=== PATIENT | female | born 1945 | race Caucasian/White ===

== ENCOUNTER 2016-11-16 15:51 | Emergency (ER) | payer MEDICARE, OTHER ==
[2016-11-16 16:09] VITALS: BP 115/56; PULSE 92; RESP 18; TEMP 99.1
--- NOTE | 2016-11-16 16:42 | ED ---
Upper Extremity HPI - General Chief Complaint: Extremity Injury, Upper Stated Complaint: Fall-arm pain Time Seen by Provider: 11/16/16 16:12 Source: patient, RN notes reviewed Mode of arrival: ambulatory Limitations: no limitations - History of Present Illness Initial Comments: Patient is a 71-year-old female presents to the emergency room for evaluation of right arm pain. Patient states about 2 days ago she tripped and fell landing on her dogs' metal cage. Patient states she has pain in her right elbow , upper arm and shoulder. Patient states the pain is worse since the incident happened. Patient states she took a Pryor about 2 hours ago with slight relief of symptoms. Patient states she has severe pain whenever she tries to extend her elbow or move her shoulder. - Related Data Allergies Allergy/AdvReac Type Severity Reaction Status Date / Time ibuprofen Allergy Swelling Verified 11/16/16 16:10 shellfish derived [Shellfish] Allergy Unknown Verified 11/16/16 16:10 Review of Systems ROS Statement: Those systems with pertinent positive or pertinent negative responses have been documented in the HPI. ROS Other: All systems not noted in ROS Statement are negative. Past Medical History Past Medical History: Coronary Artery Disease (CAD), Cancer, COPD, Diabetes Mellitus, Myocardial Infarction ([place]) Additional Past Medical History / Comment(s): Lung Ca History of Any Multi-Drug Resistant Organisms: None Reported Past Surgical History: Heart Catheterization With Stent Additional Past Surgical History / Comment(s): Stents x7; Left lung lobectomy r/ t cancer Past Psychological History: No Psychological Hx Reported Smoking Status: Current every day smoker Past Alcohol Use History: None Reported Past Drug Use History: None Reported General Exam - General Exam Comments Initial Comments: Sitting in exam room, no acute distress. Limitations: no limitations General appearance: alert, in no apparent distress Head exam: Present: atraumatic, normocephalic, normal inspection Eye exam: Present: normal appearance ENT exam: Present: normal exam Neck exam: Present: normal inspection Respiratory exam: Absent: respiratory distress Right Shoulder Exam: Present: swelling (Anterior/lateral shoulder joint). Absent: full ROM (Patient refuses to move shoulder secondary to pain) Upper Arm exam: Present: tenderness (proximal humerus), ecchymosis (medial upper arm). Absent: normal inspection Elbow exam: Present: tenderness. Absent: full ROM (Patient bend elbow but only extend elbow to about 100) Forearm Wrist exam: Present: normal inspection, full ROM. Absent: tenderness Hand Wrist exam: Present: normal inspection, full ROM. Absent: tenderness Neuro motor exam: Present: wrist extension intact, thumb opposition intact, thumb IP flexion intact, thumb adduction intact, fingers 2-5 abduction intact Vascular: Present: normal capillary refill (Capillary refill less than 2 seconds ), radial pulse (2+). Absent: vascular compromise Back exam: Present: normal inspection Neurological exam: Present: alert, oriented X3, CN II-XII intact, normal gait Psychiatric exam: Present: normal affect, normal mood Skin exam: Present: warm, dry, intact, normal color. Absent: rash Course Vital Signs 11/16/16 16:05 Temperature 99.1 F Pulse Rate 92 Respiratory 18 Rate Blood Pressure 115/56 O2 Sat by Pulse 92 L Oximetry Medical Decision Making - Medical Decision Making Patient is a 71-year-old female presents to the emergency room for evaluation of right shoulder, upper arm and elbow pain. Right elbow x-ray shows no signs of fractures or dislocations. Right shoulder and humerus x-ray significant for comminuted proximal humerus fracture. Patient will be placed in a sling and advised to follow-up with funding specialist. Patient states she already has Pryor at home for pain. Advised patient to continue taking Pryor. Patient states she understands everything that was discussed with her. Return parameters discussed. Discussed with Dr. Hernandez. - Radiology Data Radiology results: report reviewed, image reviewed Disposition Clinical Impression: Comminuted right humeral fracture, Fall Disposition: HOME SELF-CARE Condition: Good Instructions: Proximal Humerus Fracture (ED) Additional Instructions: Continue taking Pryor at home for pain. Ice on and off for 20 minutes at a time. Please follow-up with funding specialist in 24-48 hours for reevaluation. If any new symptom arises or symptoms worsen, return to ER as soon as possible. Referrals: Edy Knight MD [STAFF PHYSICIAN] - 1-2 days Time of Disposition: 17:07
--- NOTE | 2016-11-16 17:04 | XR ---
EXAMINATION TYPE: XR shoulder complete RT, XR humerus RT, XR elbow limited RT DATE OF EXAM: 11/16/2016 4:52 PM CLINICAL HISTORY: Right shoulder, arm, and humeral pain after fall injury. TECHNIQUE: Three views of the rightshoulder are obtained. 2 views right humerus and elbow are acquir ed COMPARISON: None. FINDINGS: Osseous structures are demineralized. There is acute comminuted minimally displaced fractu re through the humeral head with involvement of greater tuberosity likely present. No glenohumeral dante int dislocation is seen. No significant displacement or angulation is identified. There is moderate j oint space loss at acromioclavicular joint. The visualized ribs are intact and unremarkable. Images of right humerus show no additional fracture or dislocation in the shaft. Overlying soft tissu e is unremarkable. Images of right elbow show no acute fracture or dislocation. No abnormal fat pad signs are seen. Over lying soft tissue is unremarkable. IMPRESSION: There is acute comminuted minimally displaced fracture through right humeral head.
[2016-11-16] MEDS ORDERED: HYDROmorphone 1 MG/ML 1 ML SYRINGE IVP STA (17:17)
== END 2016-11-16 17:39 | disposition home or self-care (01) ==
LOC: EC 15:51
DX: S42.351A Displaced comminuted fracture of shaft of humerus, right arm, initial encounter for closed fracture (principal); W01.198A Fall on same level from slipping, tripping and stumbling with subsequent striking against other object, initial encounter; Z95.5 Presence of coronary angioplasty implant and graft; F17.200 Nicotine dependence, unspecified, uncomplicated; Z88.8 Allergy status to other drugs, medicaments and biological substances; Z91.013 Allergy to seafood
CPT/HCPCS: 73030; 73060; 73070; 99284; 96374; J1170

== ENCOUNTER 2017-08-11 21:50 | Observation (INO) | payer MEDICARE, OTHER ==
[2017-08-11 22:43] LABS: Basophils % (A) 0 %; CH 29.2; CHCM 32.9; Eosinophils # (A) 0.1 k/uL (0-0.7); Eosinophils % (A) 1 %; HCT 47.1 % (34.0-46.0); HDW 2.45; Luc # (Auto) 0.06; Luc % (Auto) 0; Lymphocytes # (A) 1.4 k/uL (1.0-4.8); Lymphocytes % (A) 10 %; MCH 28.5 pg (25.0-35.0); MCHC 31.9 g/dL (31.0-37.0); MCV 89.4 fL (80.0-100.0); Mean Platelet Volume 7.8; Monocytes # (A) 0.5 k/uL (0-1.0); Monocytes % (A) 3 %; Neutrophils # (A) 11.7 k/uL (1.3-7.7); Neutrophils % (A) 85 %; RBC 5.27 m/uL (3.80-5.40); RDW 15.3 % (11.5-15.5); WBC 13.7 k/uL (3.8-10.6); WBC (Perox) 13.19
[2017-08-11 22:53] LABS: INR 1.1 (<1.2); Partial Thromboplastin Time 22.9 sec (22.0-30.0); Prothrombin Time 11.2 sec (9.0-12.0)
[2017-08-11 22:54] LABS: Glucose,Whole Blood 290 mg/dL (75-99)
[2017-08-11 23:05] LABS: Anion Gap 10 mmol/L; Blood Urea Nitrogen 14 mg/dL (7-17); Calcium 8.8 mg/dL (8.4-10.2); Carbon Dioxide 25 mmol/L (22-30); Chloride 101 mmol/L (98-107); Glucose 336 mg/dL (74-99); Non-African American GFR(MDRD) >60 (>60 ml/min/1.73 sqM); Sodium 136 mmol/L (137-145)
--- NOTE | 2017-08-11 23:10 | CT ---
EXAMINATION TYPE: CT brain zelda hooper DATE OF EXAM: 08/11/2017 COMPARISON: 04/21/2012 HISTORY: Fall today with frontal injury CT DLP: 1755 mGycm Automated exposure control for dose reduction was used. TECHNIQUE: CT scan of the head and cervical spine are performed without contrast. FINDINGS: There is some cerebral cortical atrophy. There is no mass effect nor midline shift. There is no sign of intracranial hemorrhage. There is mild hypodensity in the periventricular white matter . Calvarium is intact. There is a small frontal scalp soft tissue swelling. There is fairly normal alignment of the vertebra. There is narrowing of C6-7 disc space with spurring of the endplates. Facet joints appear intact. The skull base appears intact. There is hypertrophic s purring also at C5-6 endplates. IMPRESSION: Spondylotic changes in the lower cervical spine. No fracture. No change. Cerebral atrophy and mild chronic small vessel ischemia. Small frontal scalp hematoma. No acute intra cranial abnormality.
[2017-08-11] MEDS ORDERED: SODIUM CHLORIDE 0.9% 1,000 ML IV STA (23:19)
[2017-08-11] MEDS ORDERED: SODIUM CHLORIDE 0.9% 500 ML IV STA (23:19)
--- NOTE | 2017-08-11 23:26 | ED ---
General Adult HPI - General Chief complaint: Fall Stated complaint: Fall/Syncope Time Seen by Provider: 08/11/17 23:16 Source: patient, EMS, RN notes reviewed, old records reviewed Mode of arrival: EMS Limitations: no limitations - History of Present Illness Initial comments: This is a 72-year-old female to the ER for evaluation. Patient has severe status post syncopal event. Patient has syncopal event fell and hit her head. Unknown loss of consciousness. Patient had no chest pain headache shortness of breath or abdominal pain prior. Patient complains of mild bleeding and pain to the anterior head. No blood thinners. Patient has medical history for CAD COPD and hypertension. Admits to decreased appetite as of late. - Related Data Home Medications Medication Instructions Recorded Confirmed Albuterol Inhaler [Ventolin Hfa 2 puff INHALATION RT-Q4H PRN 08/11/17 08/11/17 Inhaler] Albuterol Nebulized [Ventolin 2.5 mg INHALATION RT-QID PRN 08/11/17 08/11/17 Nebulized] Allopurinol [Zyloprim] 300 mg PO DAILY@1400 08/11/17 08/11/17 Aspirin 325 mg PO DAILY 08/11/17 08/11/17 Atorvastatin [Lipitor] 40 mg PO HS@2200 08/11/17 08/11/17 Beclomethasone Dipropionate [Qvar 2 puff INHALATION RT-BID 08/11/17 08/11/17 40 mcg] Budesonide/Formoterol Fumarate 1 puff INHALATION RT-BID 08/11/17 08/11/17 [Symbicort 160-4.5 Mcg Inhaler] Carbidopa-Levodopa 25-100 mg 1 tab PO TID 08/11/17 08/11/17 [Sinemet 25-100 mg] Docusate Sodium [Dok] 100 mg PO BID PRN 08/11/17 08/11/17 Furosemide [Lasix] 40 mg PO DAILY 08/11/17 08/11/17 Gabapentin [Neurontin] 300 mg PO BID@0900,1400 08/11/17 08/11/17 HYDROcodone/APAP 5-325MG [[place] 1 tab PO BID PRN 08/11/17 08/11/17 5-325] Insulin Aspart [NovoLOG Flexpen] 16 units SQ AC-TID 08/11/17 08/11/17 Insulin Detemir [Levemir] 70 unit SQ DAILY 08/11/17 08/11/17 Ipratropium Nebulized [Atrovent 0.5 mg INHALATION RT-QID PRN 08/11/17 08/11/17 Nebulized] Metoprolol Tartrate [Lopressor] 12.5 mg PO BID 08/11/17 08/11/17 Nitroglycerin Sl Tabs [Nitrostat] 0.4 mg SUBLINGUAL Q5M PRN 08/11/17 08/11/17 PARoxetine HCL [Paxil] 40 mg PO QAM@0900 08/11/17 08/11/17 Ranitidine HCl 150 mg PO BID@0900,2200 08/11/17 08/11/17 Previous Rx's Medication Instructions Recorded Lisinopril [Prinivil] 2.5 mg PO DAILY #0 08/12/17 Potassium Chloride ER [K-Dur 20] 20 meq PO DAILY #30 tab 08/12/17 Allergies Allergy/AdvReac Type Severity Reaction Status Date / Time diltiazem [From Cardizem] Allergy Itching Verified 08/11/17 22:13 ibuprofen Allergy Swelling Verified 08/11/17 22:13 shellfish derived [Shellfish] Allergy Unknown Verified 11/16/16 16:10 Review of Systems ROS Statement: Those systems with pertinent positive or pertinent negative responses have been documented in the HPI. ROS Other: All systems not noted in ROS Statement are negative. Past Medical History Past Medical History: Coronary Artery Disease (CAD), Cancer, COPD, Diabetes Mellitus, Myocardial Infarction ([place]) Additional Past Medical History / Comment(s): Lung Ca History of Any Multi-Drug Resistant Organisms: None Reported Past Surgical History: Heart Catheterization With Stent Additional Past Surgical History / Comment(s): Stents x7; Left lung lobectomy r/ t cancer Past Psychological History: No Psychological Hx Reported Smoking Status: Current every day smoker Past Alcohol Use History: None Reported Past Drug Use History: None Reported - Past Family History Father Family Medical History: Cancer Additional Family Medical History / Comment(s): 64 Mother Family Medical History: CVA/TIA Additional Family Medical History / Comment(s): 72 General Exam Limitations: no limitations General appearance: alert, in no apparent distress Head exam: Present: normocephalic, normal inspection. Absent: atraumatic ( laceration of forehead 2cm) Eye exam: Present: normal appearance, PERRL, EOMI. Absent: scleral icterus, conjunctival injection, periorbital swelling ENT exam: Present: normal exam, mucous membranes moist Neck exam: Present: normal inspection. Absent: tenderness, meningismus, lymphadenopathy Respiratory exam: Present: normal lung sounds bilaterally. Absent: respiratory distress, wheezes, rales, rhonchi, stridor Cardiovascular Exam: Present: regular rate, normal rhythm, normal heart sounds. Absent: systolic murmur, diastolic murmur, rubs, gallop, clicks GI/Abdominal exam: Present: soft, normal bowel sounds. Absent: distended, tenderness, guarding, rebound, rigid Extremities exam: Present: normal inspection, full ROM, normal capillary refill. Absent: tenderness, pedal edema, joint swelling, calf tenderness Back exam: Present: normal inspection Neurological exam: Present: alert, oriented X3, CN II-XII intact Psychiatric exam: Present: normal affect, normal mood Skin exam: Present: warm, dry, intact, normal color. Absent: rash Course Vital Signs 08/11/17 08/11/17 08/11/17 21:51 22:27 23:27 Temperature Pulse Rate 87 80 82 Respiratory 18 16 16 Rate Blood Pressure 128/61 125/62 130/66 O2 Sat by Pulse 99 97 96 Oximetry 08/12/17 08/12/17 02:07 02:27 Temperature 97.4 F L Pulse Rate 88 Respiratory 16 Rate Blood Pressure 155/87 O2 Sat by Pulse 97 Oximetry EKG Findings - EKG Comments: EKG Findings:: EKG shows sinus rhythm rate of 86, ME 136, QRS 114, QTc 524 Procedures - Laceration Laceration #1 Consent Obtained: verbal consent Time Out Performed: Yes Indication: laceration Site: face Size (cm): 5 Description: linear Depth: simple, single layer Anesthetic Used: lidocaine 1% Anesthesia Technique: local infiltration Pre-repair: wound explored, irrigated extensively Type of Sutures: nylon Size of Sutures: 4-0 Technique: simple, interrupted Patient Tolerated Procedure: well Medical Decision Making - Medical Decision Making 72 female to the ER for evaluation. Patient syncopal episode and fall. Patient did cystoscopy for laceration to head which is repaired. Patient will be admitted for observation regarding cause of fall - Lab Data Result diagrams: 08/11/17 22:11 08/11/17 22:11 Lab Results 08/11/17 08/11/17 08/11/17 Range/Units 22:11 22:11 22:11 WBC 13.7 H (3.8-10.6) k/uL RBC 5.27 (3.80-5.40) m/uL Hgb 15.0 (11.4-16.0) gm/dL Hct 47.1 H (34.0-46.0) % MCV 89.4 (80.0-100.0) fL MCH 28.5 (25.0-35.0) pg MCHC 31.9 (31.0-37.0) g/dL RDW 15.3 (11.5-15.5) % Plt Count 265 (150-450) k/uL Neutrophils % 85 % Lymphocytes % 10 % Monocytes % 3 % Eosinophils % 1 % Basophils % 0 % Neutrophils # 11.7 H (1.3-7.7) k/uL Lymphocytes # 1.4 (1.0-4.8) k/uL Monocytes # 0.5 (0-1.0) k/uL Eosinophils # 0.1 (0-0.7) k/uL Basophils # 0.0 (0-0.2) k/uL PT 11.2 (9.0-12.0) sec INR 1.1 (<1.2) APTT 22.9 (22.0-30.0) sec D-Dimer (<0.60) mg/L FEU Sodium 136 L (137-145) mmol/L Potassium 2.8 L* (3.5-5.1) mmol/L Chloride 101 (98-107) mmol/L Carbon Dioxide 25 (22-30) mmol/L Anion Gap 10 mmol/L BUN 14 (7-17) mg/dL Creatinine 0.70 (0.52-1.04) mg/dL Est GFR (MDRD) Af Amer >60 (>60 ml/min/1.73 sqM) Est GFR (MDRD) Non-Af >60 (>60 ml/min/1.73 sqM) Glucose 336 H (74-99) mg/dL POC Glucose (mg/dL) (75-99) mg/dL POC Glu [employer] Inspector ID Lactic Ac Sepsis Rflx Plasma Lactic Acid Carlos (0.7-2.0) mmol/L Calcium 8.8 (8.4-10.2) mg/dL Phosphorus (2.5-4.5) mg/dL Magnesium (1.6-2.3) mg/dL Total Creatine Kinase (30-135) U/L CK-MB (CK-2) (0.0-2.4) ng/mL CK-MB (CK-2) Rel Index Troponin I (0.000-0.034) ng/mL Urine Color Urine Appearance (Clear) Urine pH (5.0-8.0) Ur Specific [place] (1.001-1.035) Urine Protein (Negative) Urine Glucose (UA) (Negative) Urine Ketones (Negative) Urine Blood (Negative) Urine Nitrite (Negative) Urine Bilirubin (Negative) Urine Urobilinogen (<2.0) mg/dL Ur Leukocyte Esterase (Negative) 08/11/17 08/11/17 08/11/17 Range/Units 22:11 22:11 22:11 WBC (3.8-10.6) k/uL RBC (3.80-5.40) m/uL Hgb (11.4-16.0) gm/dL Hct (34.0-46.0) % MCV (80.0-100.0) fL MCH (25.0-35.0) pg MCHC (31.0-37.0) g/dL RDW (11.5-15.5) % Plt Count (150-450) k/uL Neutrophils % % Lymphocytes % % Monocytes % % Eosinophils % % Basophils % % Neutrophils # (1.3-7.7) k/uL Lymphocytes # (1.0-4.8) k/uL Monocytes # (0-1.0) k/uL Eosinophils # (0-0.7) k/uL Basophils # (0-0.2) k/uL PT (9.0-12.0) sec INR (<1.2) APTT (22.0-30.0) sec D-Dimer 3.41 H (<0.60) mg/L FEU Sodium (137-145) mmol/L Potassium (3.5-5.1) mmol/L Chloride (98-107) mmol/L Carbon Dioxide (22-30) mmol/L Anion Gap mmol/L BUN (7-17) mg/dL Creatinine (0.52-1.04) mg/dL Est GFR (MDRD) Af Amer (>60 ml/min/1.73 sqM) Est GFR (MDRD) Non-Af (>60 ml/min/1.73 sqM) Glucose (74-99) mg/dL POC Glucose (mg/dL) (75-99) mg/dL POC Glu [employer] Inspector ID Lactic Ac Sepsis Rflx Plasma Lactic Acid Carlos 3.2 H* (0.7-2.0) mmol/L Calcium (8.4-10.2) mg/dL Phosphorus (2.5-4.5) mg/dL Magnesium (1.6-2.3) mg/dL Total Creatine Kinase 38 (30-135) U/L CK-MB (CK-2) 0.7 (0.0-2.4) ng/mL CK-MB (CK-2) Rel Index 1.8 Troponin I <0.012 (0.000-0.034) ng/mL Urine Color Urine Appearance (Clear) Urine pH (5.0-8.0) Ur Specific [place] (1.001-1.035) Urine Protein (Negative) Urine Glucose (UA) (Negative) Urine Ketones (Negative) Urine Blood (Negative) Urine Nitrite (Negative) Urine Bilirubin (Negative) Urine Urobilinogen (<2.0) mg/dL Ur Leukocyte Esterase (Negative) 08/11/17 08/11/17 08/11/17 Range/Units 22:11 22:39 23:31 WBC (3.8-10.6) k/uL RBC (3.80-5.40) m/uL Hgb (11.4-16.0) gm/dL Hct (34.0-46.0) % MCV (80.0-100.0) fL MCH (25.0-35.0) pg MCHC (31.0-37.0) g/dL RDW (11.5-15.5) % Plt Count (150-450) k/uL Neutrophils % % Lymphocytes % % Monocytes % % Eosinophils % % Basophils % % Neutrophils # (1.3-7.7) k/uL Lymphocytes # (1.0-4.8) k/uL Monocytes # (0-1.0) k/uL Eosinophils # (0-0.7) k/uL Basophils # (0-0.2) k/uL PT (9.0-12.0) sec INR (<1.2) APTT (22.0-30.0) sec D-Dimer (<0.60) mg/L FEU Sodium (137-145) mmol/L Potassium (3.5-5.1) mmol/L Chloride (98-107) mmol/L Carbon Dioxide (22-30) mmol/L Anion Gap mmol/L BUN (7-17) mg/dL Creatinine (0.52-1.04) mg/dL Est GFR (MDRD) Af Amer (>60 ml/min/1.73 sqM) Est GFR (MDRD) Non-Af (>60 ml/min/1.73 sqM) Glucose (74-99) mg/dL POC Glucose (mg/dL) 290 H (75-99) mg/dL POC Glu [employer] ID Kory, Hannah Lactic Ac Sepsis Rflx Y Plasma Lactic Acid Carlos (0.7-2.0) mmol/L Calcium (8.4-10.2) mg/dL Phosphorus 3.1 (2.5-4.5) mg/dL Magnesium 1.7 (1.6-2.3) mg/dL Total Creatine Kinase (30-135) U/L CK-MB (CK-2) (0.0-2.4) ng/mL CK-MB (CK-2) Rel Index Troponin I (0.000-0.034) ng/mL Urine Color Urine Appearance (Clear) Urine pH (5.0-8.0) Ur Specific [place] (1.001-1.035) Urine Protein (Negative) Urine Glucose (UA) (Negative) Urine Ketones (Negative) Urine Blood (Negative) Urine Nitrite (Negative) Urine Bilirubin (Negative) Urine Urobilinogen (<2.0) mg/dL Ur Leukocyte Esterase (Negative) 08/12/17 Range/Units 00:13 WBC (3.8-10.6) k/uL RBC (3.80-5.40) m/uL Hgb (11.4-16.0) gm/dL Hct (34.0-46.0) % MCV (80.0-100.0) fL MCH (25.0-35.0) pg MCHC (31.0-37.0) g/dL RDW (11.5-15.5) % Plt Count (150-450) k/uL Neutrophils % % Lymphocytes % % Monocytes % % Eosinophils % % Basophils % % Neutrophils # (1.3-7.7) k/uL Lymphocytes # (1.0-4.8) k/uL Monocytes # (0-1.0) k/uL Eosinophils # (0-0.7) k/uL Basophils # (0-0.2) k/uL PT (9.0-12.0) sec INR (<1.2) APTT (22.0-30.0) sec D-Dimer (<0.60) mg/L FEU Sodium (137-145) mmol/L Potassium (3.5-5.1) mmol/L Chloride (98-107) mmol/L Carbon Dioxide (22-30) mmol/L Anion Gap mmol/L BUN (7-17) mg/dL Creatinine (0.52-1.04) mg/dL Est GFR (MDRD) Af Amer (>60 ml/min/1.73 sqM) Est GFR (MDRD) Non-Af (>60 ml/min/1.73 sqM) Glucose (74-99) mg/dL POC Glucose (mg/dL) (75-99) mg/dL POC Glu [employer] Inspector ID Lactic Ac Sepsis Rflx Plasma Lactic Acid Carlos (0.7-2.0) mmol/L Calcium (8.4-10.2) mg/dL Phosphorus (2.5-4.5) mg/dL Magnesium (1.6-2.3) mg/dL Total Creatine Kinase (30-135) U/L CK-MB (CK-2) (0.0-2.4) ng/mL CK-MB (CK-2) Rel Index Troponin I (0.000-0.034) ng/mL Urine Color Yellow Urine Appearance Clear (Clear) Urine pH 6.0 (5.0-8.0) Ur Specific [place] 1.006 (1.001-1.035) Urine Protein Negative (Negative) Urine Glucose (UA) 3+ H (Negative) Urine Ketones Negative (Negative) Urine Blood Negative (Negative) Urine Nitrite Negative (Negative) Urine Bilirubin Negative (Negative) Urine Urobilinogen 2.0 (<2.0) mg/dL Ur Leukocyte Esterase Negative (Negative) - Radiology Data Radiology results: report reviewed (Chest x-ray CT chest CT brain and C-spine negative for traumatic injury cause of syncope), image reviewed Disposition Clinical Impression: Fall, Syncope, Laceration of head, Head injury, Hypokalemia, Dehydration Disposition: ADMITTED IP TO THIS HOSP Condition: Fair
[2017-08-11 23:30] LABS: Potassium 2.8 mmol/L (3.5-5.1)
[2017-08-11 23:33] LABS: Magnesium 1.7 mg/dL (1.6-2.3); Phosphorus 3.1 mg/dL (2.5-4.5)
[2017-08-11 23:43] LABS: Creatine Kinase 38 U/L (30-135)
[2017-08-11 23:54] LABS: Creatine Kinase MB 0.7 ng/mL (0.0-2.4); Troponin I <0.012 ng/mL (0.000-0.034)
[2017-08-12] MEDS ORDERED: POTASSIUM BICARB-CITRIC ACID 25 MEQ TABLET.EFF PO STA (00:04)
--- NOTE | 2017-08-12 00:07 | XR ---
EXAMINATION TYPE: XR chest 2V DATE OF EXAM: 08/11/2017 COMPARISON: 11/08/2013 HISTORY: Weakness TECHNIQUE: Frontal and lateral views of the chest are obtained. FINDINGS: There are clips at the left pulmonary hilum. There is abnormal increased density around th e left pulmonary hilum and descending thoracic aorta. This appears increased compared to old exam. Th oracic aorta is atheromatous. The pulmonary markings. There is no definite pleural effusion. IMPRESSION: Abnormal masslike density along the descending thoracic aorta could relate to large aneu rysm that is increased compared to old exam. No heart failure. Pulmonary fibrotic changes. Follow-up is recommended. Tumor cannot be excluded. Previous surgery noted.
[2017-08-12] MEDS ORDERED: RX INFO: IV CONTRAST WAS GIVEN 1 EACH MISC MISCELLANE PRN (00:29)
[2017-08-12] MEDS: POTASSIUM CHLORIDE 20 MEQ, LIDOCAINE 2% INJ 20 MG in SODIUM CHLORIDE 0.9% 100 ML IVPB SCH ×3 (00:37→08:50)
[2017-08-12] MEDS ORDERED: SODIUM CHLORIDE 0.9% 1,000 ML IV ONE (00:46)
[2017-08-12] MEDS ORDERED: MORPHINE SULFATE 10 MG/ML SYRINGE IVP STA (00:54)
[2017-08-12 01:00] LABS: Appearance,Urine Clear (Clear); Bilirubin,Urine Negative (Negative); Glucose,Urine (UA) 3+ (Negative); Ketones,Urine Negative (Negative); Leukocyte Esterase,Urine Negative (Negative); Nitrite,Urine Negative (Negative); Protein,Urine Negative (Negative); Specific Gravity,Urine 1.006 (1.001-1.035); UA Billing (MACRO vs. MICRO) CHEM
--- NOTE | 2017-08-12 01:34 | CT ---
EXAMINATION TYPE: CT angio chest DATE OF EXAM: 08/12/2017 1:23 AM COMPARISON: 12/03/2013 HISTORY: Prior on synapse, weakness, fall, Surgical history: left lung, cholecystectomy, hysterectomy and appendectomy. Positive history of asthma, COPD, heart disease, diabetes and TIA, elevated d-dime r, R/O PE CT DLP: 279.80 mGycm Automated exposure control for dose reduction was used. CONTRAST: CTA scan of the thorax is performed with IV Contrast, patient injected with 85ml injected 15 ml waste d mL of Omnipaque 350, pulmonary embolism protocol. There are 3-D post processed images.. FINDINGS: The heart is enlarged. There is aneurysm of the descending thoracic aorta that measures up to 4.7 cm. There is atherosclerotic vascular calcification. I see no filling defects in the pulmonary arteries. There is no pericardial effusion. There is no ple ural effusion. There is no mediastinal adenopathy. There are no hilar masses. There is a 2 cm x 1 cm irregular nodule in the anterior segment of the right lower lobe. This has no calcification. There is spurring in the thoracic spine. IMPRESSION: NO EVIDENCE OF PULMONARY EMBOLISM. 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 THERE IS A NEW NODULAR DENSITY IN THE RIGHT LOWER LOBE THAT RAISES THE POSSIBILITY OF A TUMOR. FOLLOW -UP IS RECOMMENDED.
[2017-08-12 03:54] VITALS: BMI 25.7
[2017-08-12] MEDS ORDERED: ALBUTEROL NEBULIZED 2.5 MG/3 ML INHALATION PRN (04:34)
[2017-08-12] MEDS ORDERED: ACETAMINOPHEN TAB 325 MG TAB PO PRN (04:35)
[2017-08-12] MEDS ORDERED: traMADol 50 MG TAB PO PRN (04:36)
[2017-08-12 07:20] LABS: Glucose,Whole Blood 245 mg/dL (75-99)
[2017-08-12] MEDS: INSULIN LISPRO (humaLOG) 300 UNIT/3 ML VIAL SQ SCH ×4 (07:38→14:17)
[2017-08-12 08:29] VITALS: RESP 16; TEMP 98.1
[2017-08-12] MEDS ORDERED: ENOXAPARIN 40 MG/0.4 ML SYRINGE SQ SCH (09:00)
[2017-08-12 11:48] LABS: Glucose,Whole Blood 91 mg/dL (75-99)
[2017-08-12 12:07] VITALS: BP 131/72; PULSE 84
--- NOTE | 2017-08-12 14:34 | P.DS ---
Providers Date of admission: 08/12/17 00:46 Attending physician: Dev Dior Primary care physician: Gus Maxim [place] [facility] Course: As mentioned in HPI Patient Condition at Discharge: Fair Plan - Discharge Summary New Discharge Prescriptions: New Potassium Chloride ER [K-Dur 20] 20 meq PO DAILY #30 tab Continue Albuterol Inhaler [Ventolin Hfa Inhaler] 2 puff INHALATION RT-Q4H PRN PRN Reason: Shortness Of Breath Ranitidine HCl 150 mg PO BID@0900,2200 PARoxetine HCL [Paxil] 40 mg PO QAM@0900 Budesonide/Formoterol Fumarate [Symbicort 160-4.5 Mcg Inhaler] 1 puff INHALATION RT-BID Beclomethasone Dipropionate [Qvar 40 mcg] 2 puff INHALATION RT-BID Insulin Aspart [NovoLOG Flexpen] 16 units SQ AC-TID Nitroglycerin Sl Tabs [Nitrostat] 0.4 mg SUBLINGUAL Q5M PRN PRN Reason: Chest Pain Metoprolol Tartrate [Lopressor] 12.5 mg PO BID Insulin Detemir [Levemir] 70 unit SQ DAILY Ipratropium Nebulized [Atrovent Nebulized] 0.5 mg INHALATION RT-QID PRN PRN Reason: Shortness Of Breath HYDROcodone/APAP 5-325MG [[place]once 5-325] 1 tab PO BID PRN PRN Reason: Pain Gabapentin [Neurontin] 300 mg PO BID@0900,1400 Furosemide [Lasix] 40 mg PO DAILY Docusate Sodium [Dok] 100 mg PO BID PRN PRN Reason: Constipation Carbidopa-Levodopa 25-100 mg [Sinemet 25-100 mg] 1 tab PO TID Atorvastatin [Lipitor] 40 mg PO HS@2200 Aspirin 325 mg PO DAILY Allopurinol [Zyloprim] 300 mg PO DAILY@1400 Albuterol Nebulized [Ventolin Nebulized] 2.5 mg INHALATION RT-QID PRN PRN Reason: Shortness Of Breath Changed Lisinopril [Prinivil] 2.5 mg PO DAILY #0 Discontinued Hydrochlorothiazide 12.5 mg PO DAILY Captopril 12.5 mg PO HS@2200 Discharge Medication List Albuterol Inhaler [Ventolin Hfa Inhaler] 2 puff INHALATION RT-Q4H PRN 08/11/17 [ History] Albuterol Nebulized [Ventolin Nebulized] 2.5 mg INHALATION RT-QID PRN 08/11/17 [ History] Allopurinol [Zyloprim] 300 mg PO DAILY@1400 08/11/17 [History] Aspirin 325 mg PO DAILY 08/11/17 [History] Atorvastatin [Lipitor] 40 mg PO HS@2200 08/11/17 [History] Beclomethasone Dipropionate [Qvar 40 mcg] 2 puff INHALATION RT-BID 08/11/17 [ History] Budesonide/Formoterol Fumarate [Symbicort 160-4.5 Mcg Inhaler] 1 puff INHALATION RT-BID 08/11/17 [History] Carbidopa-Levodopa 25-100 mg [Sinemet 25-100 mg] 1 tab PO TID 08/11/17 [History] Docusate Sodium [Dok] 100 mg PO BID PRN 08/11/17 [History] Furosemide [Lasix] 40 mg PO DAILY 08/11/17 [History] Gabapentin [Neurontin] 300 mg PO BID@0900,1400 08/11/17 [History] HYDROcodone/APAP 5-325MG [Ponce 5-325] 1 tab PO BID PRN 08/11/17 [History] Insulin Aspart [NovoLOG Flexpen] 16 units SQ AC-TID 08/11/17 [History] Insulin Detemir [Levemir] 70 unit SQ DAILY 08/11/17 [History] Ipratropium Nebulized [Atrovent Nebulized] 0.5 mg INHALATION RT-QID PRN [History] Metoprolol Tartrate [Lopressor] 12.5 mg PO BID 08/11/17 [History] Nitroglycerin Sl Tabs [Nitrostat] 0.4 mg SUBLINGUAL Q5M PRN 08/11/17 [History] PARoxetine HCL [Paxil] 40 mg PO QAM@0900 08/11/17 [History] Ranitidine HCl 150 mg PO BID@0900,2200 08/11/17 [History] Lisinopril [Prinivil] 2.5 mg PO DAILY #0 08/12/17 [Rx] Potassium Chloride ER [K-Dur 20] 20 meq PO DAILY #30 tab 08/12/17 [Rx] Follow up Appointment(s)/Referral(s): Maxim,Gus, MD [Primary Care Provider] - 3 Days Gilberto Pasucal MD [STAFF PHYSICIAN] - 1 Week Patient Instructions/Handouts: Laceration (DC), Syncope (DC), Fall Prevention for Older Adults (GEN) Discharge Disposition: HOME SELF-CARE
--- NOTE | 2017-08-12 14:34 | P.HPIM ---
History of Present Illness Her old female came in after a syncopal episode patient felt dizzy will obtain echocardiogram patient blood pressure here is essentially within normal lives but patient was not started on JAYLENE inhibitor or diuretic therapy patient says she has can start failure and did not have any ejection fraction available at this point of time patient denied any fever, chills, nausea, vomiting, dysuria her dizziness completely resolved at this point of time EKG did not show any significant abnormality elevated did not reveal any abnormality that causes that can cause syncopal episodes. She had a laceration which was sutured on the forehead. Patient is actually on the a to JAYLENE inhibitor as one of which will discuss reviewed the second JAYLENE inhibitor dose will will be reduced and the patient is on Lasix as well as hydrocodone thiazide at a good thiazide will be discontinued and patient is hypokalemic potassium was supplemented and patient will be discharged on potassium supplementation Review of Systems REVIEW OF SYSTEMS: CONSTITUTIONAL: No fever, no malaise, no fatigue. HEENT: No recent visual problems or hearing problems. Denied any sore throat. CARDIOVASCULAR: No chest pain, orthopnea, PND, no palpitations, PULMONARY: No shortness of breath, no cough, no hemoptysis. GASTROINTESTINAL: No diarrhea, no nausea, no vomiting, no abdominal pain. Normoactive bowel sounds. NEUROLOGICAL: No headaches, no weakness, no numbness. HEMATOLOGICAL: Denies any bleeding or petechiae. GENITOURINARY: Denies any burning micturition, frequency, or urgency. MUSCULOSKELETAL/RHEUMATOLOGICAL: Denies any joint pain, swelling, or any muscle pain. ENDOCRINE: Denies any polyuria or polydipsia. The rest of the 14-point review of systems is negative. Past Medical History Past Medical History: Atrial Fibrillation, Coronary Artery Disease (CAD), Cancer , Heart Failure, COPD, CVA/TIA, Diabetes Mellitus, GERD/Reflux, Hyperlipidemia, Hypertension, Myocardial Infarction (DC), Osteoarthritis (OA) Additional Past Medical History / Comment(s): Lung Ca, neuropathy, home O2 - 3L , parkinsons, right shoulder fx without surgical intervention, TIA Last Myocardial Infarction Date:: 1991 History of Any Multi-Drug Resistant Organisms: None Reported Past Surgical History: Appendectomy, Cholecystectomy, Heart Catheterization With Stent, Hysterectomy Additional Past Surgical History / Comment(s): Stents x7; Left lung lobectomy r/ t cancer Past Anesthesia/Blood Transfusion Reactions: No Reported Reaction Date of Last Stent Placement:: 1998? Past Psychological History: No Psychological Hx Reported Smoking Status: Current every day smoker Past Alcohol Use History: None Reported Past Drug Use History: None Reported - Past Family History Father Family Medical History: Cancer Additional Family Medical History / Comment(s): 64 Mother Family Medical History: CVA/TIA Additional Family Medical History / Comment(s): 72 Medications and Allergies Home Medications Medication Instructions Recorded Confirmed Type Albuterol Inhaler [Ventolin Hfa 2 puff INHALATION RT-Q4H PRN 08/11/17 08/11/17 History Inhaler] Albuterol Nebulized [Ventolin 2.5 mg INHALATION RT-QID PRN 08/11/17 08/11/17 History Nebulized] Allopurinol [Zyloprim] 300 mg PO DAILY@1400 08/11/17 08/11/17 History Aspirin 325 mg PO DAILY 08/11/17 08/11/17 History Atorvastatin [Lipitor] 40 mg PO HS@2200 08/11/17 08/11/17 History Beclomethasone Dipropionate [Qvar 2 puff INHALATION RT-BID 08/11/17 08/11/17 History 40 mcg] Budesonide/Formoterol Fumarate 1 puff INHALATION RT-BID 08/11/17 08/11/17 History [Symbicort 160-4.5 Mcg Inhaler] Carbidopa-Levodopa 25-100 mg 1 tab PO TID 08/11/17 08/11/17 History [Sinemet 25-100 mg] Docusate Sodium [Dok] 100 mg PO BID PRN 08/11/17 08/11/17 History Furosemide [Lasix] 40 mg PO DAILY 08/11/17 08/11/17 History Gabapentin [Neurontin] 300 mg PO BID@0900,1400 08/11/17 08/11/17 History HYDROcodone/APAP 5-325MG [[place] 1 tab PO BID PRN 08/11/17 08/11/17 History 5-325] Insulin Aspart [NovoLOG Flexpen] 16 units SQ AC-TID 08/11/17 08/11/17 History Insulin Detemir [Levemir] 70 unit SQ DAILY 08/11/17 08/11/17 History Ipratropium Nebulized [Atrovent 0.5 mg INHALATION RT-QID PRN 08/11/17 08/11/17 History Nebulized] Metoprolol Tartrate [Lopressor] 12.5 mg PO BID 08/11/17 08/11/17 History Nitroglycerin Sl Tabs [Nitrostat] 0.4 mg SUBLINGUAL Q5M PRN 08/11/17 08/11/17 History PARoxetine HCL [Paxil] 40 mg PO QAM@0900 08/11/17 08/11/17 History Ranitidine HCl 150 mg PO BID@0900,2200 08/11/17 08/11/17 History Lisinopril [Prinivil] 2.5 mg PO DAILY #0 08/12/17 08/11/17 Rx Potassium Chloride ER [K-Dur 20] 20 meq PO DAILY #30 tab 08/12/17 Rx Allergies Allergy/AdvReac Type Severity Reaction Status Date / Time diltiazem [From Cardizem] Allergy Itching Verified 08/11/17 22:13 ibuprofen Allergy Swelling Verified 08/11/17 22:13 shellfish derived [Shellfish] Allergy Unknown Verified 11/16/16 16:10 Physical Exam Vitals: Vital Signs Temp Pulse Pulse Resp BP BP BP 08/12/17 12:00 98.1 F 84 16 131/72 08/12/17 08:00 98.1 F 83 16 141/65 08/12/17 07:56 18 08/12/17 04:00 86 18 08/12/17 03:45 97.8 F 90 18 148/77 08/12/17 02:27 88 16 155/87 08/12/17 02:07 97.4 F L 08/11/17 23:27 82 16 130/66 08/11/17 22:27 80 16 125/62 08/11/17 21:51 87 18 128/61 BP BP Pulse Ox 08/12/17 12:00 97 08/12/17 08:00 98 08/12/17 07:56 08/12/17 04:00 08/12/17 03:45 144/80 138/73 98 08/12/17 02:27 97 08/12/17 02:07 08/11/17 23:27 96 08/11/17 22:27 97 08/11/17 21:51 99 Intake and Output 08/11/17 08/12/17 08/12/17 22:59 06:59 14:59 Other: Voiding Method Toilet Toilet # Voids 1 1 Weight 72.121 kg 73.6 kg PHYSICAL EXAMINATION: GENERAL: The patient is alert and oriented x3, not in any acute distress. Well developed, well nourished. HEENT: Pupils are round and equally reacting to light. EOMI. No scleral icterus. No conjunctival pallor. She and had a to say middle laceration on the forehead which was sutured. No pharyngeal erythema. No thyromegaly. CARDIOVASCULAR: S1 and S2 present. No murmurs, rubs, or gallops. PULMONARY: Chest is clear to auscultation, no wheezing or crackles. ABDOMEN: Soft, nontender, nondistended, normoactive bowel sounds. No palpable organomegaly. MUSCULOSKELETAL: No joint swelling or deformity. EXTREMITIES: No cyanosis, clubbing, or pedal edema. NEUROLOGICAL: Gross neurological examination did not reveal any focal deficits. SKIN: No rashes. Results CBC & Chem 7: 08/11/17 22:11 08/11/17 22:11 Labs: Abnormal Lab Results - Last 24 Hours (Table) 08/11/17 08/11/17 08/11/17 Range/Units 22:11 22:11 22:11 WBC 13.7 H (3.8-10.6) k/uL Hct 47.1 H (34.0-46.0) % Neutrophils # 11.7 H (1.3-7.7) k/uL D-Dimer (<0.60) mg/L FEU Sodium 136 L (137-145) mmol/L Potassium 2.8 L* (3.5-5.1) mmol/L Glucose 336 H (74-99) mg/dL POC Glucose (mg/dL) (75-99) mg/dL Plasma Lactic Acid Carlos 3.2 H* (0.7-2.0) mmol/L Urine Glucose (UA) (Negative) 08/11/17 08/11/17 08/12/17 Range/Units 22:11 22:39 00:13 WBC (3.8-10.6) k/uL Hct (34.0-46.0) % Neutrophils # (1.3-7.7) k/uL D-Dimer 3.41 H (<0.60) mg/L FEU Sodium (137-145) mmol/L Potassium (3.5-5.1) mmol/L Glucose (74-99) mg/dL POC Glucose (mg/dL) 290 H (75-99) mg/dL Plasma Lactic Acid Carlos (0.7-2.0) mmol/L Urine Glucose (UA) 3+ H (Negative) 08/12/17 Range/Units 07:14 WBC (3.8-10.6) k/uL Hct (34.0-46.0) % Neutrophils # (1.3-7.7) k/uL D-Dimer (<0.60) mg/L FEU Sodium (137-145) mmol/L Potassium (3.5-5.1) mmol/L Glucose (74-99) mg/dL POC Glucose (mg/dL) 245 H (75-99) mg/dL Plasma Lactic Acid Carlos (0.7-2.0) mmol/L Urine Glucose (UA) (Negative) Microbiology - Last 24 Hours (Table) 08/12/17 00:13 Urine Culture - Preliminary Urine,Voided Thrombosis Risk Factor Assmnt - Choose All That Apply Each Factor Represents 1 point: Abnormal pulmonary function (COPD) Each Risk Factor Represents 2 Points: Age 61-74 years, Malignancy Thrombosis Risk Factor Assessment Total Risk Factor Score: 5 Thrombosis Risk Factor Assessment Level: High Risk Assessment and Plan Plan: #1 syncopal episode: Probably related to low blood pressure related to his mid her medication medication changes as mentioned above and patient will be discharged after echocardiogram to make sure there are no significant valvular abnormality as it Contributed to her syncopal episode. And the vasovagal event as well. #2 sodium congestive heart failure: Unsure whether patient has Metastatic dysfunction R systolic dysfunction according to him is being obtained. Patient is not in acute exacerbation at this time. #3 COPD without any acute exacerbation #4 type 2 diabetes mellitus #5 coronary artery disease #6 hypertension next Plan as mentioned in history itself patient will be discharged after the echocardiogram if that is within normal limits. Patient is feeling much better
--- NOTE | 2017-08-13 15:06 | ECHOF ---
Referral Reason:SYNCOPE MEASUREMENTS -------- HEIGHT: 160.0 cm WEIGHT: 73.5 kg BP: 120/60 IVSd: 1.2 cm (0.6 - 1.1) LVIDd: 5.7 cm (3.9 - 5.3) LVPWd: 0.8 cm (0.6 - 1.1) IVSs: 1.3 cm LVIDs: 5.4 cm LVPWs: 1.0 cm LA Diam: 4.1 cm (2.7 - 3.8) LAESV Index (A-L): 41.55 ml/m Ao Diam: 3.1 cm (2.0 - 3.7) AV Cusp: 1.6 cm (1.5 - 2.6) LA Diam: 4.2 cm (2.7 - 3.8) EPSS: 2.0 cm MV E Gonzalez: 0.99 m/s MV DecT: 172 ms MV A Gonzalez: 0.91 m/s MV E/A Ratio: 1.09 RAP: 5.00 mmHg RVSP: 30.51 mmHg MV EF SLOPE: 23.73 mm/s (70 - 150) MV EXCURSION: 0.96 cm (> 18.000) FINDINGS -------- Sinus rhythm. This was a technically good study. Left ventricular wall thickness is normal. Overall left ventricular systolic function is moderate-s everely impaired with, an EF between 30 - 35 %. Posterior hypokinesis Inferior Hypokinesis The right ventricle is normal in size. LA is severely dilated >40 ml/m2 The right atrial size is normal. The aortic valve is trileaflet, and appears structurally normal. No aortic stenosis or regurgitation. Severe mitral regurgitation is present. Mild tricuspid regurgitation present. Right ventricular systolic pressure is normal at < 35 mmHg. Trace/mild (physiologic) pulmonic regurgitation. The aortic root size is normal. There is no pericardial effusion. CONCLUSIONS -------- 1. Sinus rhythm. 2. Left ventricular wall thickness is normal. 3. Overall left ventricular systolic function is moderate-severely impaired with, an EF between 30 - 35 %. 4. Posterior hypokinesis 5. Inferior Hypokinesis 6. The right ventricle is normal in size. 7. LA is severely dilated >40 ml/m2 8. The right atrial size is normal. 9. The aortic valve is trileaflet, and appears structurally normal. No aortic stenosis or regurgitati on. 10. Severe mitral regurgitation is present. 11. Mild tricuspid regurgitation present. 12. Right ventricular systolic pressure is normal at < 35 mmHg. 13. Trace/mild (physiologic) pulmonic regurgitation. 14. The aortic root size is normal. 15. There is no pericardial effusion. RN INTERNAL MEDICINE: Charity Norris RDCS
== END 2017-08-12 15:05 | disposition home or self-care (01) ==
LOC: EC 21:50 → 3OBS 08-12 00:46
PROVIDERS: ADMIT Hospitalist; ATTEND Hospitalist
DX: R55 Syncope and collapse (principal); J44.9 Chronic obstructive pulmonary disease, unspecified; I25.10 Atherosclerotic heart disease of native coronary artery without angina pectoris; K21.9 Gastro-esophageal reflux disease without esophagitis; I50.9 Heart failure, unspecified; I11.0 Hypertensive heart disease with heart failure; I48.91 Unspecified atrial fibrillation; E78.5 Hyperlipidemia, unspecified; M19.90 Unspecified osteoarthritis, unspecified site; G20 Parkinson's disease; S09.90XA Unspecified injury of head, initial encounter; S01.91XA Laceration without foreign body of unspecified part of head, initial encounter; E87.6 Hypokalemia; E86.0 Dehydration; I25.2 Old myocardial infarction; W18.30XA Fall on same level, unspecified, initial encounter; Z95.5 Presence of coronary angioplasty implant and graft; Z88.6 Allergy status to analgesic agent; Z88.8 Allergy status to other drugs, medicaments and biological substances; Z91.013 Allergy to seafood; F17.200 Nicotine dependence, unspecified, uncomplicated; Z85.118 Personal history of other malignant neoplasm of bronchus and lung; Z86.73 Personal history of transient ischemic attack (TIA), and cerebral infarction without residual deficits; Z79.899 Other long term (current) drug therapy; Z79.4 Long term (current) use of insulin; Z79.51 Long term (current) use of inhaled steroids; Z79.82 Long term (current) use of aspirin; E11.40 Type 2 diabetes mellitus with diabetic neuropathy, unspecified
CPT/HCPCS: 99285; 96365 ×2; 96366 ×3; 96375 ×2; 96361 ×2; 12013; 96372; 36415; 93005; 93306; 85379; 80048; 82550; 82553; 83605 ×2; 83735; 84100; 84484; 85025; 85610; 85730; 81003; 87086; 83036; 71020; 72125; 70450; 71275; G0378; J2001; Q9967; J2270; J3480; J1650

== ENCOUNTER 2017-12-18 15:36 | Emergency (ER) | payer MEDICARE, OTHER ==
[2017-12-18 15:47] VITALS: RESP 18; TEMP 97.3
[2017-12-18] MEDS ORDERED: SODIUM CHLORIDE 0.9% 1,000 ML IV STA ×2 (16:19)
--- NOTE | 2017-12-18 16:25 | ED ---
Chest Pain HPI - General Chief Complaint: Chest Pain Stated Complaint: sent by PCP Time Seen by Provider: 12/18/17 16:19 Source: patient, family, RN notes reviewed Mode of arrival: wheelchair Limitations: no limitations - History of Present Illness Initial Comments: Is a 72-year-old female who states she's had dry heaves with nausea some occasional vomiting some diarrhea over last week and a half. He has had chest pain at times with the vomiting. She feels some lightheadedness and dizziness. She denies any fevers chills or sweats. She also states that 2 days ago she had no urine output yesterday she had 3 episodes today she's had a little bit more. She also complains some abdominal pain. She has a history of cholecystectomy appendectomy and hysterectomy. She also states she has 6 and half pound cyst that was removed from her abdomen at some time in the past. Patient's also states she ran out of her medications due to some type of mixup with her pharmacy. She states she's not had them for about a week and a half either. She denies any history of colitis or diverticulitis MD Complaint: chest pain, other - Related Data Home Medications Medication Instructions Recorded Confirmed Albuterol Inhaler [Ventolin Hfa 2 puff INHALATION RT-Q4H PRN 08/11/17 12/18/17 Inhaler] Albuterol Nebulized [Ventolin 2.5 mg INHALATION RT-QID PRN 08/11/17 12/18/17 Nebulized] Allopurinol [Zyloprim] 300 mg PO DAILY@1400 08/11/17 12/18/17 Aspirin 325 mg PO DAILY 08/11/17 12/18/17 Atorvastatin [Lipitor] 40 mg PO HS@2200 08/11/17 12/18/17 Beclomethasone Dipropionate [Qvar 2 puff INHALATION RT-BID 08/11/17 12/18/17 40 mcg] Budesonide/Formoterol Fumarate 1 puff INHALATION RT-BID 08/11/17 12/18/17 [Symbicort 160-4.5 Mcg Inhaler] Carbidopa-Levodopa 25-100 mg 1 tab PO TID 08/11/17 12/18/17 [Sinemet 25-100 mg] Docusate Sodium [Dok] 100 mg PO BID PRN 08/11/17 12/18/17 Furosemide [Lasix] 40 mg PO DAILY 08/11/17 12/18/17 Gabapentin [Neurontin] 300 mg PO BID@0900,1400 08/11/17 12/18/17 Insulin Aspart [NovoLOG Flexpen] 16 units SQ AC-TID 08/11/17 12/18/17 Insulin Detemir [Levemir] 70 unit SQ DAILY 08/11/17 12/18/17 Ipratropium Nebulized [Atrovent 0.5 mg INHALATION RT-QID PRN 08/11/17 12/18/17 Nebulized] Metoprolol Tartrate [Lopressor] 12.5 mg PO BID 08/11/17 12/18/17 Nitroglycerin Sl Tabs [Nitrostat] 0.4 mg SUBLINGUAL Q5M PRN 08/11/17 12/18/17 PARoxetine HCL [Paxil] 40 mg PO QAM@0900 08/11/17 12/18/17 Ranitidine HCl 150 mg PO BID@0900,2200 08/11/17 12/18/17 Captopril 12.5 mg PO HS@2200 12/18/17 12/18/17 Hydrochlorothiazide 12.5 mg PO DAILY@0900 12/18/17 12/18/17 Previous Rx's Medication Instructions Recorded Potassium Chloride ER [K-Dur 20] 20 meq PO DAILY #30 tab 08/12/17 Allergies Allergy/AdvReac Type Severity Reaction Status Date / Time diltiazem [From Cardizem] Allergy Itching Verified 12/18/17 16:46 ibuprofen Allergy Swelling Verified 12/18/17 16:46 shellfish derived [Shellfish] Allergy Unknown Verified 12/18/17 16:46 Review of Systems ROS Statement: Those systems with pertinent positive or pertinent negative responses have been documented in the HPI. ROS Other: All systems not noted in ROS Statement are negative. Past Medical History Past Medical History: Coronary Artery Disease (CAD), Cancer, COPD, Diabetes Mellitus, Myocardial Infarction ([place]) Additional Past Medical History / Comment(s): Lung Ca Last Myocardial Infarction Date:: 1991 History of Any Multi-Drug Resistant Organisms: None Reported Past Surgical History: Heart Catheterization With Stent Additional Past Surgical History / Comment(s): Stents x7; Left lung lobectomy r/ t cancer Past Anesthesia/Blood Transfusion Reactions: No Reported Reaction Date of Last Stent Placement:: 1998? Past Psychological History: No Psychological Hx Reported Smoking Status: Current every day smoker Past Alcohol Use History: None Reported Past Drug Use History: None Reported - Past Family History Father Family Medical History: Cancer Additional Family Medical History / Comment(s): 64 Mother Family Medical History: CVA/TIA Additional Family Medical History / Comment(s): 72 General Exam - General Exam Comments Initial Comments: Is a well-developed well-nourished awake alert oriented 3 female Limitations: no limitations General appearance: alert, in no apparent distress Head exam: Present: atraumatic, normocephalic, normal inspection Eye exam: Present: normal appearance, PERRL, EOMI. Absent: scleral icterus, conjunctival injection, periorbital swelling ENT exam: Present: mucous membranes dry Neck exam: Present: normal inspection. Absent: tenderness, meningismus, lymphadenopathy Respiratory exam: Present: normal lung sounds bilaterally. Absent: respiratory distress, wheezes, rales, rhonchi, stridor Cardiovascular Exam: Present: regular rate, normal rhythm, normal heart sounds. Absent: systolic murmur, diastolic murmur, rubs, gallop, clicks GI/Abdominal exam: Present: soft, tenderness (Tennis palpation no definite guarding or rebound), normal bowel sounds. Absent: distended, guarding, rebound , rigid, bruit, pulsatile mass, hernia Rectal exam: Present: deferred Extremities exam: Present: normal inspection, full ROM, normal capillary refill. Absent: tenderness, pedal edema, joint swelling, calf tenderness Back exam: Present: normal inspection Neurological exam: Present: alert, oriented X3, CN II-XII intact Psychiatric exam: Present: normal affect, normal mood Skin exam: Present: warm, dry, intact, normal color. Absent: rash Course Vital Signs 12/18/17 15:43 Temperature 97.3 F L Pulse Rate 79 Respiratory 18 Rate Blood Pressure 167/79 O2 Sat by Pulse 97 Oximetry Chest Pain MDM - MDM Imaging was reviewed no acute findings. The patient was seen by Dr. Davis in the emergency department the patient does wish to go home patient's lab work is within normal limits the presentation is consistent with some dehydration. The patient will get her prescriptions as planned. She is follow-up with doctor and return when necessary EKG and lab work for cardiac events are normal the patient is feeling markedly improved at this time. Disposition Clinical Impression: Enteritis, Atypical chest pain, Abdominal pain, Dehydration Disposition: HOME SELF-CARE Condition: Good Instructions: Abdominal Pain (ED), Enteritis (ED), Dehydration (ED), Chest Pain (ED) Referrals: Gus Pna MD [Primary Care Provider] - 1-2 days
[2017-12-18 16:42] LABS: Basophils % (A) 1 %; Eosinophils % (A) 1 %; HCT 48.4 % (34.0-46.0); HGB 15.5 gm/dL (11.4-16.0); Lymphocytes # (A) 1.4 k/uL (1.0-4.8); Lymphocytes % (A) 17 %; MCH 26.3 pg (25.0-35.0); MCHC 32.1 g/dL (31.0-37.0); MCV 81.8 fL (80.0-100.0); Mean Platelet Volume 7.8; Monocytes # (A) 0.5 k/uL (0-1.0); Monocytes % (A) 6 %; Neutrophils # (A) 6.1 k/uL (1.3-7.7); Neutrophils % (A) 74 %; Platelet Count 235 k/uL (150-450); RBC 5.91 m/uL (3.80-5.40); RDW 14.9 % (11.5-15.5); WBC 8.3 k/uL (3.8-10.6)
[2017-12-18 16:43] LABS: Appearance,Urine Cloudy (Clear); Bilirubin,Urine 1+ (Negative); Blood,Urine Small (Negative); Color,Urine Yellow; Glucose,Urine (UA) Trace (Negative); Hyaline Casts,Urine 1 /lpf (0-2); Ketones,Urine 2+ (Negative); Leukocyte Esterase,Urine Negative (Negative); Mucus,Urine Rare /hpf; Nitrite,Urine Negative (Negative); Protein,Urine 2+ (Negative); RBC,Urine 3 /hpf (0-5); Specific Gravity,Urine 1.025 (1.001-1.035); Squamous Epithelial Cell,Urine 9 /hpf (0-4); WBC,Urine 2 /hpf (0-5)
[2017-12-18 16:50] LABS: ALT 20 U/L (9-52); AST 21 U/L (14-36); Albumin 3.7 g/dL (3.5-5.0); Alkaline Phosphatase 125 U/L (38-126); Amylase 33 U/L (30-110); Anion Gap 12 mmol/L; Blood Urea Nitrogen 11 mg/dL (7-17); Calcium 9.6 mg/dL (8.4-10.2); Carbon Dioxide 27 mmol/L (22-30); Chloride 100 mmol/L (98-107); Glucose 188 mg/dL (74-99); Lipase 20 U/L (23-300); Magnesium 1.8 mg/dL (1.6-2.3); Potassium 3.5 mmol/L (3.5-5.1); Sodium 139 mmol/L (137-145); Total Protein 6.2 g/dL (6.3-8.2)
[2017-12-18 16:54] LABS: INR 1.1 (<1.2); Partial Thromboplastin Time 22.7 sec (22.0-30.0); Prothrombin Time 11.1 sec (9.0-12.0)
[2017-12-18 17:19] LABS: Creatine Kinase MB 1.4 ng/mL (0.0-2.4); Troponin I 0.026 ng/mL (0.000-0.034)
--- NOTE | 2017-12-18 17:25 | XR ---
EXAMINATION TYPE: XR chest 2V DATE OF EXAM: 12/18/2017 COMPARISON: 08/11/2017 HISTORY: Short of breath TECHNIQUE: Frontal and lateral views of the chest are obtained. FINDINGS: There is some coarsening of interstitial pulmonary markings. There is no gross heart failu re. Thoracic aorta is atheromatous. There are clips from left mastectomy. There is probably a hiatal hernia. There are chest leads. Bones appear osteopenic. IMPRESSION: Mild pulmonary fibrosis. Atheromatous aorta. Inspiration is improved slightly compared t o old exam.
[2017-12-18 18:35] VITALS: BP 179/88; PULSE 86
--- NOTE | 2017-12-19 00:36 | CONS ---
CONSULTATION DATE OF CONSULTATION: December 18, 2017 REASON FOR CONSULTATION: Medical management requested by Dr. Payam Green. CONSULTATION: This is a 72-year-old patient presented to the ER with being followed by Dr. Pan. The patient's chronic stable medical conditions include coronary artery disease, COPD, diabetes, nicotine dependence, hypercholesteremia, movement disorder and anxiety. The patient presented to the ER because she was just not feeling well. When I asked her how she was doing, she said "Fine I want to go home". She was slightly short of breath, but she said she is doing much better. No chest pain. Slight cough. No sputum production. No fever. Appetite is good. Some pain in the joints. Bowels are good. Good urine output. During my interview she kept insisting that she wanted to go home. She stated that because of insurance, she was out of her medications but now was feeling fine and she has to sort things out. REVIEW OF SYSTEMS: CONSTITUTIONAL: None. HEENT none. Respiratory: Baseline mild shortness of breath. Cardiovascular: No precordial chest pain. Gastrointestinal: None. Genitourinary: None. Musculoskeletal pain in joints. Dermatological and hematologic, lymphatic none. Psychiatry anxiety. Neurological none. PAST MEDICAL HISTORY: Coronary artery disease, COPD, diabetes, anxiety, depression gout, movement disorder. PAST SURGICAL HISTORY: Cardiac cath with stent, left lung lobectomy due to cancer. SOCIAL HISTORY: Smokes at least half a pack a day, smoking for close to 40 years. No alcohol. FAMILY HISTORY: Of cancer type unknown. HOME MEDICATIONS: 1. Nitrostat 0.4 sublingual q.5h p.r.n. 2. Captopril 12.5 p.o. q.h.s. 3. Zantac 150 mg b.i.d. 4. K-Dur 20 mEq p.o. daily. 5. Paxil 40 mg p.o. daily. 6. Symbicort 160/4.5, 2 puffs b.i.d. 7. Qvar 42 puffs b.i.d. 8. Ventolin HFA 2 puffs q.4 p.r.n. 9. Lopressor 12.5 p.o. b.i.d. 10.NovoLog 16 units a.c. t.i.d. 11.Atrovent 2.5 nebulizer q.i.d. p.r.n. 12.Levemir 70 units subcu daily. 13.Hydrochlorothiazide 12.5 p.o. daily. 14.Neurontin 300 mg p.o. b.i.d. 15.Lasix 40 mg p.o. daily. 16.Colace 100 mg b.i.d. p.r.n. 17.Sinemet 25/100 one tablet p.o. t.i.d. 18.Lipitor 40 mg q.h.s. 19.Aspirin 325 p.o. daily. 20.Allopurinol 10 mg p.o. daily. 21.Ventolin 2.5 q.i.d. p.r.n. ALLERGIES: TO CARDIZEM, IBUPROFEN, SHELLFISH. PHYSICAL EXAMINATION: Temperature 97.3, pulse 86, respiratory 18, blood pressure 139/88, pulse ox 98% on room air. General appearance: Sitting up comfortable. Eyes pupils equal. Conjunctivae normal. External appearance of nose and ears normal. HEENT external appearance of nose and ears normal. Oral cavity normal. Neck JVD not raised. Mass not palpable. Respiratory effort normal. LUNGS: Diminished breath sounds. Minimal wheezing. Cardiovascular 1st and second sounds normal. No edema. ABDOMEN: Soft, nontender. Liver and spleen not palpable. Lymphatics: No lymphs node palpable in the neck or axillae. PSYCHIATRY: Alert and oriented times three. Slightly anxious-appearing. Musculoskeletal: Evidence of osteoarthritis especially in the hands and knees. Neurological: Pupils equal no facial asymmetry, power and sensation grossly intact. INVESTIGATIONS: White count 8.3, hemoglobin 15.5, platelets 235, potassium 3.5. BUN creatinine is normal chest x-ray, nil acute. ASSESSMENT: . 1. This is a patient presented with a multitude of symptoms, but rather keen to go home. Does not seem to have any specific complaint, rather nonspecific complaints. 2. Chronic obstructive pulmonary disease in a current smoker. 3. Chronic nicotine dependence patient is a cigarette smoker. 4. Coronary artery prior history of stent. 5. Diabetes mellitus type 2, chronically on insulin. 6. Movement disorder, possibly Parkinson disease. 7. Depression anxiety not otherwise specified. PLAN: Medically the patient is rather stable. She said she is going to arrange from medications and go and see a family doctor. She is very keen to go home. She also has a family member at the bedside. I think it is okay to let the patient go home and follow up with her family doctor and I did also tell the patient not to smoke and use the money from that to pay for medications if she needs some needs right away. Thank you, Dr. Hare. Copy to Dr. Pan. HIMANSHU / ANJELICA: [id number] /
== END 2017-12-18 18:50 | disposition home or self-care (01) ==
LOC: EC 15:36
DX: K52.9 Noninfective gastroenteritis and colitis, unspecified (principal); E86.0 Dehydration; R07.89 Other chest pain; I25.10 Atherosclerotic heart disease of native coronary artery without angina pectoris; J44.9 Chronic obstructive pulmonary disease, unspecified; E11.9 Type 2 diabetes mellitus without complications; I25.2 Old myocardial infarction; Z85.118 Personal history of other malignant neoplasm of bronchus and lung; F17.200 Nicotine dependence, unspecified, uncomplicated; Z79.51 Long term (current) use of inhaled steroids; Z79.4 Long term (current) use of insulin; Z79.82 Long term (current) use of aspirin; Z79.899 Other long term (current) drug therapy; Z88.6 Allergy status to analgesic agent; Z91.013 Allergy to seafood; Z88.8 Allergy status to other drugs, medicaments and biological substances
CPT/HCPCS: 36415; 71046; 80053; 81001; 82150; 82550; 82553; 83690; 83735; 84484; 85025; 85610; 85730; 93005; 96360; 96361; 99285

== ENCOUNTER 2018-12-10 16:23 | Inpatient (IN) | payer MEDICARE, OTHER ==
[2018-12-10 17:14] LABS: Basophils % (A) 0 %; Eosinophils % (A) 0 %; HCT 49.1 % (34.0-46.0); HGB 16.1 gm/dL (11.4-16.0); Lymphocytes # (A) 1.5 k/uL (1.0-4.8); Lymphocytes % (A) 15 %; MCH 28.6 pg (25.0-35.0); MCHC 32.8 g/dL (31.0-37.0); MCV 87.3 fL (80.0-100.0); Monocytes # (A) 0.5 k/uL (0-1.0); Monocytes % (A) 5 %; Neutrophils # (A) 7.8 k/uL (1.3-7.7); Neutrophils % (A) 78 %; Platelet Count 199 k/uL (150-450); RBC 5.62 m/uL (3.80-5.40); RDW 14.6 % (11.5-15.5); WBC 10.1 k/uL (3.8-10.6)
--- NOTE | 2018-12-10 17:16 | ED ---
General Adult HPI - General Chief complaint: Recheck/Abnormal Lab/Rx Stated complaint: Hyperglycemia Time Seen by Provider: 12/10/18 16:35 Source: patient, EMS Mode of arrival: EMS Limitations: no limitations - History of Present Illness Initial comments: Dictation was produced using Peek[employer] dictation software. please excuse any grammatical, word or spelling errors. Chief Complaint: 73-year-old female with insulin-dependent diabetes presents with altered mental status elevated blood sugars. History of Present Illness: 73-year-old female with past nuchal history coronary artery disease, cancer, COPD, diabetes presents with altered mental status. Patient has been losing a lot of weight recently. Patient is unable to provide detailed history at this time. She presents with family friend. Reports that patient has not been eating and taking her insulin recently. She' s been having serial elevated blood sugars. Patient is insulin-dependent diabetic. She has not seen a christmas tree grower. Her diabetes is managed by her primary care physician. The ROS documented in this emergency department record has been reviewed and confirmed by me. Those systems with pertinent positive or negative responses have been documented in the HPI. All other systems are other negative and/or noncontributory. PHYSICAL EXAM: General Impression: Lethargic, cooperative, follows commands HEENT: Normocephalic atraumatic, extra-ocular movements intact, pupils equal and reactive to light bilaterally, mucous membranes moist. Cardiovascular: Heart regular rate and rhythm, S1&S2 audible, no murmurs, rubs or gallops Chest: Lungs clear to auscultation bilaterally, no rhonchi, no wheeze, no rales Abdomen: Diffuse tenderness to palpation Musculoskeletal: Pulses present and equal in all extremities, no peripheral edema Motor: no focal deficits noted Neurological: CN II-XII grossly intact, no focal motor or sensory deficits noted Skin: Intact with no visualized rashes ED course: 73-year-old female presents with altered mental status, elevated sugars. Vital signs upon arrival are within acceptable limits. Patient appears dry lethargic.Laboratory evaluation obtained. CBC is unremarkable. Patient does have 16.1 hemoglobin likely secondary to hemoconcentration. Blood gas shows pH of 7.44, she does have CO2 retention with appropriate metabolic compensation. Sodium 133 secondary to hyperglycemia. Potassium 3.0. She has a hypochloremic metabolic alkalosis likely secondary to dehydration and fluid loss. Glucose 520. Rest of labs are unremarkable. CT of the brain was obtained showing no acute processes. Chest x-ray shows no acute processes. Pending urine studies. Given degree of dehydration and metabolic encephalopathy with laboratory derangements with a plan to have patient admitted to hospital. We will put GI consultation for poor by mouth intake. Patient does complain of food trapping with swallowing. Patient also feels severe nausea and vomiting with eating. Given history of diabetes ears concern for diabeticparesis. Barium swallow with small bowel follow-through was obtained. Patient kept on intravenous fluids. Potassium supplementation was provided. Patient's QT is prolonged likely secondary to electrolyte abnormality. Patient be maintained on telemetry. EKG interpretation: Ventricular rate 71, sinus rhythm,. Interval 152, care is 1 :30, QTc 523. - Related Data Home Medications Medication Instructions Recorded Confirmed Albuterol Inhaler [Ventolin Hfa 2 puff INHALATION RT-Q4H PRN 08/11/17 12/10/18 Inhaler] Albuterol Nebulized [Ventolin 2.5 mg INHALATION RT-QID PRN 08/11/17 12/10/18 Nebulized] Allopurinol [Zyloprim] 300 mg PO DAILY@1400 08/11/17 12/10/18 Aspirin 325 mg PO DAILY 08/11/17 12/10/18 Atorvastatin [Lipitor] 40 mg PO HS@2200 08/11/17 12/10/18 Beclomethasone Dipropionate [Qvar 2 puff INHALATION RT-BID 08/11/17 12/10/18 40 mcg] Budesonide/Formoterol Fumarate 1 puff INHALATION RT-BID 08/11/17 12/10/18 [Symbicort 160-4.5 Mcg Inhaler] Carbidopa-Levodopa 25-100 mg 1 tab PO TID 08/11/17 12/10/18 [Sinemet 25-100 mg] Docusate Sodium [Dok] 100 mg PO BID PRN 08/11/17 12/10/18 Furosemide [Lasix] 40 mg PO DAILY 08/11/17 12/10/18 Gabapentin [Neurontin] 300 mg PO BID@0900,1400 08/11/17 12/10/18 Ipratropium Nebulized [Atrovent 0.5 mg INHALATION RT-QID PRN 08/11/17 12/10/18 Nebulized 0.2 MG/ML] Metoprolol Tartrate [Lopressor] 12.5 mg PO BID 08/11/17 12/10/18 Nitroglycerin Sl Tabs [Nitrostat] 0.4 mg SUBLINGUAL Q5M PRN 08/11/17 12/10/18 PARoxetine HCL [Paxil] 40 mg PO QAM@0900 08/11/17 12/10/18 Ranitidine HCl 150 mg PO BID@0900,2200 08/11/17 12/10/18 Captopril 12.5 mg PO HS@2200 12/18/17 12/10/18 Hydrochlorothiazide 12.5 mg PO DAILY@0900 12/18/17 12/10/18 Insulin Aspart [NovoLOG Flexpen] 17 units SQ TID 12/10/18 12/10/18 Insulin Detemir (Levemir) [Levemir] 60 units SQ HS 12/10/18 12/10/18 Previous Rx's Medication Instructions Recorded Potassium Chloride ER [K-Dur 20] 20 meq PO DAILY #30 tab 08/12/17 Allergies Allergy/AdvReac Type Severity Reaction Status Date / Time diltiazem [From Cardizem] Allergy Itching Verified 12/10/18 17:05 ibuprofen Allergy Swelling Verified 12/10/18 17:05 shellfish derived [Shellfish] Allergy Unknown Verified 12/10/18 17:05 Review of Systems ROS Statement: Those systems with pertinent positive or pertinent negative responses have been documented in the HPI. ROS Other: All systems not noted in ROS Statement are negative. Past Medical History Past Medical History: Coronary Artery Disease (CAD), Cancer, COPD, Diabetes Mellitus, Myocardial Infarction (PA) Additional Past Medical History / Comment(s): Lung Ca Last Myocardial Infarction Date:: 1991 History of Any Multi-Drug Resistant Organisms: None Reported Past Surgical History: Heart Catheterization With Stent Additional Past Surgical History / Comment(s): Stents x7; Left lung lobectomy r/ t cancer Past Anesthesia/Blood Transfusion Reactions: No Reported Reaction Date of Last Stent Placement:: 1998? Past Psychological History: No Psychological Hx Reported Smoking Status: Current every day smoker Past Alcohol Use History: None Reported Past Drug Use History: None Reported - Past Family History Father Family Medical History: Cancer Additional Family Medical History / Comment(s): 64 Mother Family Medical History: CVA/TIA Additional Family Medical History / Comment(s): 72 General Exam Limitations: no limitations Course Vital Signs 12/10/18 12/10/18 16:25 18:54 Temperature 98.2 F Pulse Rate 73 63 Respiratory 18 16 Rate Blood Pressure 109/69 110/50 O2 Sat by Pulse 94 L 95 Oximetry Medical Decision Making - Lab Data Result diagrams: 12/10/18 16:40 12/10/18 16:40 Lab Results 12/10/18 12/10/18 12/10/18 Range/Units 16:40 16:40 17:17 WBC 10.1 (3.8-10.6) k/uL RBC 5.62 H (3.80-5.40) m/uL Hgb 16.1 H (11.4-16.0) gm/dL Hct 49.1 H (34.0-46.0) % MCV 87.3 (80.0-100.0) fL MCH 28.6 (25.0-35.0) pg MCHC 32.8 (31.0-37.0) g/dL RDW 14.6 (11.5-15.5) % Plt Count 199 (150-450) k/uL Neutrophils % 78 % Lymphocytes % 15 % Monocytes % 5 % Eosinophils % 0 % Basophils % 0 % Neutrophils # 7.8 H (1.3-7.7) k/uL Lymphocytes # 1.5 (1.0-4.8) k/uL Monocytes # 0.5 (0-1.0) k/uL Eosinophils # 0.0 (0-0.7) k/uL Basophils # 0.0 (0-0.2) k/uL VBG pH (7.31-7.41) VBG pCO2 (37-51) mmHg VBG HCO3 (24-28) mmol/L Sodium 133 L (137-145) mmol/L Potassium 3.0 L (3.5-5.1) mmol/L Chloride 90 L (98-107) mmol/L Carbon Dioxide 34 H (22-30) mmol/L Anion Gap 9 mmol/L BUN 19 H (7-17) mg/dL Creatinine 0.78 (0.52-1.04) mg/dL Est GFR (CKD-EPI)AfAm 89 (>60 ml/min/1.73 sqM) Est GFR (CKD-EPI)NonAf 77 (>60 ml/min/1.73 sqM) Glucose 520 H* (74-99) mg/dL POC Glucose (mg/dL) 510 H (75-99) mg/dL POC Glu Tie Binder [place]ia Drew Calcium 9.2 (8.4-10.2) mg/dL Magnesium 2.2 (1.6-2.3) mg/dL Total Bilirubin 0.8 (0.2-1.3) mg/dL AST 25 (14-36) U/L ALT 17 (9-52) U/L Alkaline Phosphatase 134 H (38-126) U/L Creatine Kinase 25 L (30-135) U/L Total Protein 5.8 L (6.3-8.2) g/dL Albumin 3.4 L (3.5-5.0) g/dL Lipase 163 (23-300) U/L 12/10/18 12/10/18 Range/Units 17:21 18:53 WBC (3.8-10.6) k/uL RBC (3.80-5.40) m/uL Hgb (11.4-16.0) gm/dL Hct (34.0-46.0) % MCV (80.0-100.0) fL MCH (25.0-35.0) pg MCHC (31.0-37.0) g/dL RDW (11.5-15.5) % Plt Count (150-450) k/uL Neutrophils % % Lymphocytes % % Monocytes % % Eosinophils % % Basophils % % Neutrophils # (1.3-7.7) k/uL Lymphocytes # (1.0-4.8) k/uL Monocytes # (0-1.0) k/uL Eosinophils # (0-0.7) k/uL Basophils # (0-0.2) k/uL VBG pH 7.44 H (7.31-7.41) VBG pCO2 54 H (37-51) mmHg VBG HCO3 36 H (24-28) mmol/L Sodium (137-145) mmol/L Potassium (3.5-5.1) mmol/L Chloride (98-107) mmol/L Carbon Dioxide (22-30) mmol/L Anion Gap mmol/L BUN (7-17) mg/dL Creatinine (0.52-1.04) mg/dL Est GFR (CKD-EPI)AfAm (>60 ml/min/1.73 sqM) Est GFR (CKD-EPI)NonAf (>60 ml/min/1.73 sqM) Glucose (74-99) mg/dL POC Glucose (mg/dL) 352 H (75-99) mg/dL POC Glu Tie Binder ID [place] Calcium (8.4-10.2) mg/dL Magnesium (1.6-2.3) mg/dL Total Bilirubin (0.2-1.3) mg/dL AST (14-36) U/L ALT (9-52) U/L Alkaline Phosphatase (38-126) U/L Creatine Kinase (30-135) U/L Total Protein (6.3-8.2) g/dL Albumin (3.5-5.0) g/dL Lipase (23-300) U/L Disposition Clinical Impression: Dehydration, Hypokalemia, QT prolongation Disposition: ADMITTED IP TO THIS HOSP Condition: Fair Referrals: Gus Pan MD [Primary Care Provider] - 1-2 days Decision Time: 20:17
[2018-12-10 17:18] LABS: Glucose,Whole Blood 510 mg/dL (75-99)
[2018-12-10 17:25] LABS: Calcium 9.2 mg/dL (8.4-10.2); Magnesium 2.2 mg/dL (1.6-2.3)
[2018-12-10] MEDS ORDERED: SODIUM CHLORIDE 0.9% 1,000 ML IV STA ×2 (17:29→17:30)
[2018-12-10 17:40] LABS: VBG PH 7.44 (7.31-7.41)
[2018-12-10 17:53] LABS: Albumin 3.4 g/dL (3.5-5.0); Total Bilirubin 0.8 mg/dL (0.2-1.3); Total Protein 5.8 g/dL (6.3-8.2)
--- NOTE | 2018-12-10 17:57 | XR ---
EXAMINATION TYPE: XR chest 1V portable DATE OF EXAM: 12/10/2018 COMPARISON: Chest x-ray December 19, 2027 seen HISTORY: Hyperglycemia and weakness. TECHNIQUE: Single frontal view of the chest is obtained. FINDINGS: There is chronic minimal change without suspicious focal air space opacity, pleural effusi on, or pneumothorax seen. The cardiac silhouette size is upper limits of normal with atherosclerotic and ectatic thoracic aorta redemonstrated. Surgical clips overlying left breast are again seen. The osseous structures remain demineralized. IMPRESSION: Chronic changes without acute pulmonary process.
--- NOTE | 2018-12-10 18:00 | CT ---
EXAMINATION TYPE: CT brain wo con DATE OF EXAM: 12/10/2018 HISTORY: Per patient family mental status changes CT DLP: 1158.4 mGycm. Automated Exposure Control for Dose Reduction was Utilized. TECHNIQUE: CT scan of the head is performed without contrast. COMPARISON: CT brain August 11, 2017 FINDINGS: There is no acute intracranial hemorrhage or midline shift identified. There is diffuse v entricular and sulcal prominence consistent with diffuse age-related cerebral atrophy. There is low- attenuation in the periventricular white matter consistent with chronic small vessel ischemic change. The globes are intact and the visualized sinuses are clear. IMPRESSION: No acute intracranial hemorrhage or midline shift. There is mild diffuse age-related ce rebral atrophy and mild to moderate chronic small vessel ischemic change redemonstrated. No signific ant change from prior CT.
[2018-12-10] MEDS ORDERED: POTASSIUM CHLORIDE 20 MEQ in WATER FOR INJECTION 1 100ML.BAG IVPB STA (18:14)
[2018-12-10 18:56] LABS: Glucose,Whole Blood 352 mg/dL (75-99)
[2018-12-10] MEDS ORDERED: NALOXONE 0.4 MG/ML 1 ML VIAL IV PRN (20:11)
[2018-12-10] MEDS ORDERED: POTASSIUM CHLORIDE 20 MEQ in WATER FOR INJECTION 1 100ML.BAG IVPB ONE (20:30)
[2018-12-10 20:45] LABS: Appearance,Urine Clear (Clear); Bilirubin,Urine Negative (Negative); Blood,Urine Negative (Negative); Color,Urine Yellow; Glucose,Urine (UA) 4+ (Negative); Ketones,Urine 1+ (Negative); Leukocyte Esterase,Urine Negative (Negative); Nitrite,Urine Negative (Negative); PH, Urine 6.5 (5.0-8.0); Protein,Urine Negative (Negative); Specific Gravity,Urine 1.022 (1.001-1.035); Urobilinogen,Urine <2.0 mg/dL (<2.0)
[2018-12-10] MEDS: SODIUM CHLORIDE 0.9% 1,000 ML IV SCH (20:51)
[2018-12-10] MEDS ORDERED: DOCUSATE 100 MG CAP PO PRN (21:24)
[2018-12-10] MEDS ORDERED: IPRATROPIUM 0.5 MG/2.5 ML NEBU INHALATION PRN (21:24)
[2018-12-10] MEDS ORDERED: ALBUTEROL NEBULIZED 2.5 MG/3 ML INHALATION PRN ×2 (21:24)
[2018-12-10] MEDS ORDERED: NITROGLYCERIN SL TABS 0.4 MG TAB SUBLINGUAL PRN (21:24)
[2018-12-10 21:29] LABS: Glucose,Whole Blood 378 mg/dL (75-99)
[2018-12-10] MEDS ORDERED: INSULIN ASPART (NovoLOG) 100 UNIT/ML VIAL SQ ONE (22:04)
[2018-12-10] MEDS: INSULIN ASPART (NovoLOG) 100 UNIT/ML VIAL SQ SCH (22:04)
[2018-12-10] MEDS: ATORVASTATIN 40 MG TAB PO SCH (22:26)
[2018-12-10] MEDS: CARBIDOPA-LEVODOPA 25-100 MG 1 EACH TAB PO SCH (22:26)
[2018-12-10] MEDS: FAMOTIDINE 20 MG TAB PO SCH (22:26)
[2018-12-10] MEDS: METOPROLOL TARTRATE 12.5 MG TAB PO SCH (22:27)
[2018-12-10] MEDS: CAPTOPRIL 25 MG TAB PO SCH (22:27)
[2018-12-10] MEDS: INSULIN DETEMIR (LEVEMIR) 100 UNIT/ML SYR SQ SCH (22:27)
--- NOTE | 2018-12-10 23:52 | HP ---
HISTORY AND PHYSICAL DATE OF ADMISSION: 12/10/2018 PRESENTING COMPLAINT: Weak, tired, not eating. HISTORY OF PRESENTING COMPLAINT: This is a 73-year-old patient of Dr. Pan who was brought into the hospital by her niece. Patient's chronic stable medical conditions include coronary artery disease, COPD, smoking. Patient apparently has not been eating and sugars are running high. Initial sugar in the ER was 520. The patient herself is only able to answer some part of the questions, rather slow. Patient is a long-standing smoker. Patient states that she lives by herself, may use a walker. Niece does her grocerying and also buys her cigarettes. Patient has been losing weight, rather rundown. REVIEW OF SYSTEMS: CONSTITUTIONAL: Decreased appetite, weight loss. HEENT: None. RESPIRATORY: Short of breath. Some wheezing. CARDIOVASCULAR: None. GASTROINTESTINAL: None. GENITOURINARY: None. MUSCULOSKELETAL: Some pain in the joints. DERMATOLOGICAL: Dictation ends abruptly. MMODL / IJN: [id number] /
[2018-12-11] MEDS: NICOTINE 21MG/24HR PATCH TRANSDERM SCH ×2 (01:06→20:33)
[2018-12-11 07:20] LABS: Glucose,Whole Blood 76 mg/dL (75-99)
[2018-12-11] MEDS ORDERED: INSULIN ASPART (NovoLOG) 100 UNIT/ML VIAL SQ SCH (07:30)
[2018-12-11] MEDS: INSULIN ASPART (NovoLOG) 100 UNIT/ML VIAL SQ SCH ×6 (08:00→22:29)
[2018-12-11] MEDS ORDERED: SYMBICORT 160-4.5 MCG INHALER INHALATION SCH (08:00)
[2018-12-11] MEDS ORDERED: FLUTICASONE 110 MCG INHALER INHALATION SCH (08:00)
[2018-12-11 08:12] LABS: Anion Gap 4 mmol/L; Blood Urea Nitrogen 14 mg/dL (7-17); Calcium 9.2 mg/dL (8.4-10.2); Carbon Dioxide 33 mmol/L (22-30); Chloride 101 mmol/L (98-107); Glucose 61 mg/dL (74-99); Potassium 3.3 mmol/L (3.5-5.1); Sodium 138 mmol/L (137-145)
[2018-12-11] MEDS: POTASSIUM CHLORIDE ER 20 MEQ TAB.ER PO SCH (08:38)
[2018-12-11] MEDS: ALLOPURINOL 300 MG TAB PO SCH (08:38)
[2018-12-11] MEDS: CARBIDOPA-LEVODOPA 25-100 MG 1 EACH TAB PO SCH ×3 (08:38→20:32)
[2018-12-11] MEDS: FUROSEMIDE 40 MG TAB PO SCH (08:38)
[2018-12-11] MEDS: METOPROLOL TARTRATE 12.5 MG TAB PO SCH ×2 (08:38→20:33)
[2018-12-11] MEDS: ENOXAPARIN 40 MG/0.4 ML SYRINGE SQ SCH (08:38)
[2018-12-11] MEDS: ASPIRIN 325 MG TAB PO SCH (08:38)
[2018-12-11] MEDS: GABAPENTIN 300 MG CAP PO SCH ×2 (08:38→15:02)
[2018-12-11] MEDS: FAMOTIDINE 20 MG TAB PO SCH ×2 (08:39→20:33)
[2018-12-11] MEDS: PARoxetine 20 MG TAB PO SCH (08:39)
[2018-12-11] MEDS ORDERED: PANTOPRAZOLE 40 MG/10 ML VIAL IV SCH (09:00)
[2018-12-11] MEDS: BUDESONIDE 1 MG/2 ML NEBU INHALATION SCH ×2 (09:15→20:32)
[2018-12-11] MEDS: IPRATROPIUM-ALBUTEROL 3 ML NEB INHALATION SCH ×4 (09:15→20:32)
--- NOTE | 2018-12-11 09:40 | P.CONS ---
History of Present Illness - Reason for Consult Consult date: 12/11/18 Dysphagia Requesting physician: Yoel Davis - Chief Complaint Altered mental status elevated serum glucose - History of Present Illness 73-year-old female with a history of lung cancer, CAD, COPD, insulin-dependent diabetes mellitus admitted with altered mental status elevated serum glucose 520. Consult requested for dysplasia. Patient states her last months she's had progressive dysphagia with liquids and solids sometimes with a "stuck feeling in the middle of my chest". Reports weight loss but cannot quantify. Admission weight 60 kg reviewing previous medical records she was 73 kg August 2017 3 weeks ago she reports a one time red blood tinged emesis with no recurrence. Denies hematochezia or melena. No history of EGD. Denies fever chills or abdominal pain. Hemoglobin 16.1. White count 10.1. Glucose improved 61. CT brain no acute intracranial hemorrhage or midline shift. Chest x-ray, chronic changes without acute pulmonary process. She ate a full breakfast and took her medications this morning without any difficulty per nursing. Review of Systems Constitutional: Denies fever, chills, sweats, weight gain, or loss. Admitted with mental status changes. HEENT: Negative for migraines, blurred vision or loss, earaches, drainage, tinnitus, oral mucosal lesions, dysphagia, or odynophagia. CARDIAC: Negative for chest pain, arrhythmias, or palpitation. RESPIRATORY: Negative for shortness of breath, hemoptysis, cough, or sputum production. GI: See HPI for pertinent findings. : Negative for hematuria, urgency, frequency, polyuria, or dysuria. GYNc: Negative vaginal discharge. MUSCULOSKELETAL: Negative for muscle aches, swelling, arthritis, and arthralgias. NEUROLOGIC: Negative for stroke or TIA. ENDOCRINE: Negative for thyroid problems. SKIN: Negative for rash or itching. PSYCHIATRIC: Negative history for depression and anxietye Past Medical History Past Medical History: Coronary Artery Disease (CAD), Cancer, COPD, Diabetes Mellitus, Myocardial Infarction (ID) Additional Past Medical History / Comment(s): Lung Ca Last Myocardial Infarction Date:: 1991 History of Any Multi-Drug Resistant Organisms: None Reported Past Surgical History: Heart Catheterization With Stent Additional Past Surgical History / Comment(s): Stents x7; Left lung lobectomy r/ t cancer Past Anesthesia/Blood Transfusion Reactions: No Reported Reaction Date of Last Stent Placement:: 1998? Past Psychological History: No Psychological Hx Reported Smoking Status: Light tobacco smoker Past Alcohol Use History: None Reported Past Drug Use History: None Reported - Past Family History Father Family Medical History: Cancer Additional Family Medical History / Comment(s): 64 Mother Family Medical History: CVA/TIA Additional Family Medical History / Comment(s): 72 Medications and Allergies Home Medications Medication Instructions Recorded Confirmed Type Albuterol Inhaler [Ventolin Hfa 2 puff INHALATION RT-Q4H PRN 08/11/17 12/10/18 History Inhaler] Albuterol Nebulized [Ventolin 2.5 mg INHALATION RT-QID PRN 08/11/17 12/10/18 History Nebulized] Allopurinol [Zyloprim] 300 mg PO DAILY@1400 08/11/17 12/10/18 History Aspirin 325 mg PO DAILY 08/11/17 12/10/18 History Atorvastatin [Lipitor] 40 mg PO HS@2200 08/11/17 12/10/18 History Beclomethasone Dipropionate [Qvar 2 puff INHALATION RT-BID 08/11/17 12/10/18 History 40 mcg] Budesonide/Formoterol Fumarate 1 puff INHALATION RT-BID 08/11/17 12/10/18 History [Symbicort 160-4.5 Mcg Inhaler] Carbidopa-Levodopa 25-100 mg 1 tab PO TID 08/11/17 12/10/18 History [Sinemet 25-100 mg] Docusate Sodium [Dok] 100 mg PO BID PRN 08/11/17 12/10/18 History Furosemide [Lasix] 40 mg PO DAILY 08/11/17 12/10/18 History Gabapentin [Neurontin] 300 mg PO BID@0900,1400 08/11/17 12/10/18 History Ipratropium Nebulized [Atrovent 0.5 mg INHALATION RT-QID PRN 08/11/17 12/10/18 History Nebulized 0.2 MG/ML] Metoprolol Tartrate [Lopressor] 12.5 mg PO BID 08/11/17 12/10/18 History Nitroglycerin Sl Tabs [Nitrostat] 0.4 mg SUBLINGUAL Q5M PRN 08/11/17 12/10/18 History PARoxetine HCL [Paxil] 40 mg PO QAM@0900 08/11/17 12/10/18 History Ranitidine HCl 150 mg PO BID@0900,2200 08/11/17 12/10/18 History Potassium Chloride ER [K-Dur 20] 20 meq PO DAILY #30 tab 08/12/17 12/10/18 Rx Captopril 12.5 mg PO HS@2200 12/18/17 12/10/18 History Hydrochlorothiazide 12.5 mg PO DAILY@0900 12/18/17 12/10/18 History Insulin Aspart [NovoLOG Flexpen] 17 units SQ TID 12/10/18 12/10/18 History Insulin Detemir (Levemir) [Levemir] 60 units SQ HS 12/10/18 12/10/18 History Allergies Allergy/AdvReac Type Severity Reaction Status Date / Time diltiazem [From Cardizem] Allergy Itching Verified 12/10/18 17:05 ibuprofen Allergy Swelling Verified 12/10/18 17:05 shellfish derived [Shellfish] Allergy Unknown Verified 12/10/18 17:05 Physical Exam Vitals: Vital Signs Temp Pulse Pulse Resp BP BP Pulse Ox 12/11/18 09:16 76 12/11/18 08:25 98.7 F 65 14 92/50 93 L 12/11/18 03:33 18 12/11/18 00:25 98.4 F 73 14 91/61 96 12/11/18 00:00 18 12/10/18 21:41 15 12/10/18 21:23 97.8 F 68 15 109/68 92 L 12/10/18 20:30 79 20 120/69 91 L 12/10/18 20:20 78 20 120/69 91 L 12/10/18 20:10 77 20 136/85 91 L 12/10/18 20:00 78 20 118/101 93 L 12/10/18 19:50 77 20 118/101 92 L 12/10/18 19:40 75 20 131/98 94 L 12/10/18 19:30 73 20 123/74 92 L 12/10/18 19:20 72 16 123/74 94 L 12/10/18 19:10 69 17 108/55 93 L 12/10/18 19:00 64 18 110/50 03/04/19 18:54 63 16 110/50 95 12/10/18 18:50 60 12 110/50 95 12/10/18 18:40 60 10 L 107/61 92 L 12/10/18 18:30 63 20 116/66 98 12/10/18 18:20 61 14 116/66 94 L 12/10/18 18:10 60 16 115/67 95 12/10/18 18:00 61 16 108/75 93 L 12/10/18 17:50 64 21 108/75 94 L 12/10/18 17:40 106/66 12/10/18 17:30 68 11 L 105/70 93 L 12/10/18 17:20 67 17 105/70 91 L 12/10/18 17:10 67 20 93 L 12/10/18 17:00 70 20 103/60 94 L 12/10/18 16:50 78 21 103/60 92 L 12/10/18 16:40 70 20 101/72 92 L 12/10/18 16:30 73 20 109/69 93 L 12/10/18 16:29 109/69 95 12/10/18 16:25 98.2 F 73 18 109/69 94 L Intake and Output 12/10/18 12/11/18 12/11/18 22:59 06:59 14:59 Other: Voiding Method Bedpan Bedpan # Voids 1 Weight 57.606 kg General appearance: The patient is alert, oriented, in no acute distress. Overall appearance is cachectic. HET: Head is normocephalic and atraumatic. Pupils are equal and reactive. Oropharynx is clear without lesions. Neck: Supple without lymphadenopathy. Trachea midline. Heart: S1 S2. Regular rate and rhythm. Lungs: No crackles or wheezes are heard. Abdomen: Soft, nontender, nondistended with bowel sounds. No peritoneal signs. No palpable organomegaly or masses. Extremities: Normal skin color and turgor. No cyanosis, rash, ulceration, clubbing, or edema. Radial and pedal pulses are 2/4 bilaterally. Neurological: No focal deficits. Strength and sensation are grossly intact. Results CBC & Chem 7: 12/10/18 16:40 12/11/18 06:46 Labs: Abnormal Lab Results - Last 24 Hours (Table) 12/10/18 12/10/18 12/10/18 Range/Units 16:40 16:40 17:17 RBC 5.62 H (3.80-5.40) m/uL Hgb 16.1 H (11.4-16.0) gm/dL Hct 49.1 H (34.0-46.0) % Neutrophils # 7.8 H (1.3-7.7) k/uL VBG pH (7.31-7.41) VBG pCO2 (37-51) mmHg VBG HCO3 (24-28) mmol/L Sodium 133 L (137-145) mmol/L Potassium 3.0 L (3.5-5.1) mmol/L Chloride 90 L (98-107) mmol/L Carbon Dioxide 34 H (22-30) mmol/L BUN 19 H (7-17) mg/dL Glucose 520 H* (74-99) mg/dL POC Glucose (mg/dL) 510 H (75-99) mg/dL Alkaline Phosphatase 134 H (38-126) U/L Creatine Kinase 25 L (30-135) U/L Total Protein 5.8 L (6.3-8.2) g/dL Albumin 3.4 L (3.5-5.0) g/dL Urine Glucose (UA) (Negative) Urine Ketones (Negative) 12/10/18 12/10/18 12/10/18 Range/Units 17:21 18:53 19:35 RBC (3.80-5.40) m/uL Hgb (11.4-16.0) gm/dL Hct (34.0-46.0) % Neutrophils # (1.3-7.7) k/uL VBG pH 7.44 H (7.31-7.41) VBG pCO2 54 H (37-51) mmHg VBG HCO3 36 H (24-28) mmol/L Sodium (137-145) mmol/L Potassium (3.5-5.1) mmol/L Chloride (98-107) mmol/L Carbon Dioxide (22-30) mmol/L BUN (7-17) mg/dL Glucose (74-99) mg/dL POC Glucose (mg/dL) 352 H (75-99) mg/dL Alkaline Phosphatase (38-126) U/L Creatine Kinase (30-135) U/L Total Protein (6.3-8.2) g/dL Albumin (3.5-5.0) g/dL Urine Glucose (UA) 4+ H (Negative) Urine Ketones 1+ H (Negative) 12/10/18 12/11/18 Range/Units 21:17 06:46 RBC (3.80-5.40) m/uL Hgb (11.4-16.0) gm/dL Hct (34.0-46.0) % Neutrophils # (1.3-7.7) k/uL VBG pH (7.31-7.41) VBG pCO2 (37-51) mmHg VBG HCO3 (24-28) mmol/L Sodium (137-145) mmol/L Potassium 3.3 L (3.5-5.1) mmol/L Chloride (98-107) mmol/L Carbon Dioxide 33 H (22-30) mmol/L BUN (7-17) mg/dL Glucose 61 L (74-99) mg/dL POC Glucose (mg/dL) 378 H (75-99) mg/dL Alkaline Phosphatase (38-126) U/L Creatine Kinase (30-135) U/L Total Protein (6.3-8.2) g/dL Albumin (3.5-5.0) g/dL Urine Glucose (UA) (Negative) Urine Ketones (Negative) Microbiology - Last 24 Hours (Table) 12/10/18 19:35 Urine Culture - Preliminary Urine,Catheterized Chest x-ray: report reviewed (Dr. Maki) CT Scan - head: report reviewed (Dr. Maki) Assessment and Plan (1) Dysphagia Narrative/Plan: 73-year-old female history of diabetes, lung cancer presents with altered mental status elevated glucose dysphagia 1 month with solids and liquids as well as an intentional weight loss, and isolated episode of blood-tinged emesis 3 weeks ago. Underlying esophageal stricture disease, peptic ulcer disease, neoplasm within the differential. Current Visit: Yes Status: Acute Code(s): R13.10 - DYSPHAGIA, UNSPECIFIED SNOMED Code(s): 72155412 (2) Unintentional weight loss Narrative/Plan: Possible underlying protein calorie malnutrition Current Visit: Yes Status: Acute Code(s): R63.4 - ABNORMAL WEIGHT LOSS SNOMED Code(s): 476413434 (3) History of lung cancer Current Visit: Yes Status: Acute Code(s): Z85.118 - PERSONAL HISTORY OF MALIGNANT NEOPLASM OF BRONCHUS AND LUNG SNOMED Code(s): 063196986 (4) Altered mental status Current Visit: Yes Status: Acute Code(s): R41.82 - ALTERED MENTAL STATUS, UNSPECIFIED SNOMED Code(s): 437454084 (5) Elevated glucose Current Visit: Yes Status: Acute Code(s): R73.09 - OTHER ABNORMAL GLUCOSE SNOMED Code(s): 291024944 Plan: 1. Light diet as tolerated today. Hold Lovenox and aspirin in a.m. for EGD. Prealbumin. Nothing by mouth after midnight for EGD evaluation tomorrow; patient a full breakfast this morning. Protonix 40 [address] daily[address] The high court justice has discussed the risks, benefits and alternative therapies for the above-mentioned procedure and for both sedation/analgesia as well as necessary blood product administration, if indicated, as they pertain to this patient. The patient has indicated understanding and acceptance of the risks and procedures discussed. Thank you for this kind referral and the opportunity to participate in the care of your patient. This consultation was discussed with Dr. Maki. The impression and plan of care have been directed as dictated.
[2018-12-11 10:30] VITALS: BMI 24.0
[2018-12-11 11:26] LABS: Glucose,Whole Blood 87 mg/dL (75-99)
[2018-12-11] MEDS: PANTOPRAZOLE 40 MG TABLET PO SCH (11:55)
--- NOTE | 2018-12-11 15:24 | FL ---
MODIFIED SWALLOW / DEGLUTITION STUDY DATE OF EXAM: 12/11/2018 CLINICAL HISTORY: 73-year-old female Dysphagia. Coughing with eating. Prior stroke. TECHNIQUE: Deglutition study is performed utilizing thin liquid barium, honey and nectar thick liqui d barium, barium thick applesauce, and barium coated cracker. Total fluoroscopy time: 2.33 minutes. Total images: None. Real-time fluoroscopy support was provided to speech pathology. COMPARISON: None. FINDINGS: The oral and pharyngeal phases show satisfactory initiation and propagation with all modalities teste d. Normal mastication is seen with solid modalities tested. There is transient penetration with thi n liquids this improves with chin tuck maneuver. Otherwise, no evidence of penetration or aspiration with any modality tested. Mild to moderate vallecular residual. Also, moderate hypertrophy of the cri copharyngeus is noted. IMPRESSION: 1. Transient penetration of thin liquids which improved with chin tuck. No other penetration or aspir ation seen. 2. Mild to moderate vallecular residuals and moderate CP hypertrophy. Please refer to speech therapist notes for further details if necessary.
[2018-12-11 16:54] LABS: Glucose,Whole Blood 207 mg/dL (75-99)
[2018-12-11] MEDS: SODIUM CHLORIDE 0.9% 1,000 ML IV SCH ×2 (17:12→22:29)
[2018-12-11 20:11] LABS: Glucose,Whole Blood 136 mg/dL (75-99)
[2018-12-11] MEDS: INSULIN DETEMIR (LEVEMIR) 100 UNIT/ML SYR SQ SCH (20:33)
[2018-12-11] MEDS: ATORVASTATIN 40 MG TAB PO SCH (20:33)
[2018-12-11] MEDS: CAPTOPRIL 25 MG TAB PO SCH (20:33)
--- NOTE | 2018-12-12 02:13 | HP ---
HISTORY AND PHYSICAL DATE OF ADMISSION: December 10, 2018. DATE OF SERVICE: December 10, 2018. PRESENTING COMPLAINT: Weak tired, not eating. HISTORY OF PRESENTING COMPLAINT: This is a repeat H and P dictated. This is a 73-year-old patient of Dr. Pan, who was brought into the hospital by her niece. Patient's chronic stable medical conditions include coronary artery disease, COPD, smoking. The patient apparently has not been eating and sugars are running high. Initial sugar in the ER was 520. The patient herself slowly to answer some part of the questions rather slow. Patient is a long-standing smoker. States she lives by herself. May use a walker. Niece does her groceries and also buys her cigarettes. The patient has been losing weight, rather rundown and tired. REVIEW OF SYSTEMS: CONSTITUTIONAL: Decreased appetite and weight loss. HEENT none. RESPIRATORY: Short of breath, some wheezing. CARDIOVASCULAR none. GASTROINTESTINAL: None. GENITOURINARY: None. MUSCULOSKELETAL: Pain in joints. DERMATOLOGICAL: None. HEMATOLOGICAL: None. LYMPHATIC: None. PSYCHIATRIC: Somewhat anxious. NEUROLOGICAL: None. PAST MEDICAL HISTORY: Coronary artery disease with stent, COPD, diabetes, lung cancer. PAST SURGICAL HISTORY: Cardiac catheter with stent x7, left lung lobectomy in 1998. SOCIAL HISTORY: Lives by herself. Niece does her groceries. Does smoke. No alcohol. FAMILY HISTORY: History of cancer. HOME MEDICATIONS: 1. Zantac 150 mg p.o. b.i.d. 2. Potassium 20 mEq a day. 3. Paxil 40 mg a day. 4. Nitrostat 0.4 sublingual q.5 p.r.n. 5. Lopressor 12.5 p.o. b.i.d. 6. Atrovent 0.5 nebulizer q.i.d. p.r.n. 7. Levemir 60 units subcu q.h.s. 8. NovoLog 17 units subcu t.i.d. 9. Neurontin 300 mg b.i.d. 10.Lasix 40 mg p.o. daily. 11.Colace 100 mg b.i.d. p.r.n. 12.Sinemet 20/100 1 tablet p.o. t.i.d. 13.Captopril 12.5 p.o. q.h.s. 14.Symbicort 1 puff b.i.d. 15.Qvar 2 puffs b.i.d. 16.Lipitor 40 mg q.h.s. 17.Aspirin 325 p.o. daily. 18.Allopurinol 300 mg p.o. daily. 19.Ventolin 2.5 q.i.d. p.r.n. ALLERGIES: DILTIAZEM, IBUPROFEN, SHELLFISH. PHYSICAL EXAMINATION: VITAL SIGNS: Vital signs on presentation temperature 98.2, pulse 73, respiration 18, blood pressure 109/69, pulse ox 94 percent on room air. GENERAL APPEARANCE: Average build, lying in bed, tired-appearing. EYES: Pupils equal. Conjunctivae pale. HEENT: External appearance of nose and ears normal. Oral cavity dry mucous membranes. NECK: JVD not raised. Mass not palpable. RESPIRATORY: Effort increased. LUNGS: Diminished breath sounds. CARDIOVASCULAR: 1st and 2nd sounds normal. No edema. ABDOMEN: Soft, nontender. Liver and spleen not palpable. PSYCHIATRY: The patient is able to answer simple questions. NEUROLOGICAL: Pupils equal. Cranial nerves grossly intact. Moving all 4 limbs. INVESTIGATIONS: White count 10.1, hemoglobin 16.1 potassium 3.0, BUN 19, creatinine 0.70, blood glucose was 520, anion gap is 9. ASSESSMENT: 1. Nonketotic hyperosmolar hyperglycemia. 2. Chronic obstructive pulmonary disease in a current smoker. 3. Chronic nicotine dependence, patient is a cigarette smoker. 4. Decreased oral intake. 5. Coronary artery disease with history of stent. 6. Medical debility. PLAN: Patient's home medications are resumed. Accu-Cheks will be followed. Close eye will be kept with electrolytes. Consultation made to speech and GI. Initial H and P was not fully done. Hence, this is being redone. Copy Dr. Pan. MMODL / IJN: [id number] /
--- NOTE | 2018-12-12 02:19 | PN ---
PROGRESS NOTE DATE OF SERVICE: December 11, 2018. PRESENT COMPLAINT: Decreased oral intake. INTERVAL HISTORY: This patient presented weak and tired, sugars running high. Morning speech therapy did videoscopic study. Very mild thin liquid penetration was noted. Also seen by GI, planning to do EGD tomorrow. Sitting up in a chair. The patient is more communicative today. REVIEW OF SYSTEMS: Done for constitutional, cardiovascular, GI, pulmonary; relevant findings as above. CURRENT MEDICATIONS: Reviewed. PHYSICAL EXAMINATION: VITAL SIGNS: On examination temperature 97.4, pulse 81, respirations 16, blood pressure 97/59, pulse ox 92 percent on room air. GENERAL APPEARANCE: Sitting up, awake EYES: Pupils equal. Conjunctivae normal. NECK: JVD not raised. Mass not palpable. Respiratory effort normal. LUNGS: Decreased breath sounds. CARDIOVASCULAR: 1st and 2nd sounds normal. No edema. ABDOMEN: Soft, nontender. Liver and spleen not palpable. PSYCHIATRY: Patient is able answer simple questions. INVESTIGATIONS: Potassium 3.3, BUN 14, creatinine 0.68. ASSESSMENT: 1. Coronary artery disease. 2. Chronic obstructive pulmonary disease in a smoker. 3. Diabetes mellitus type 2 uncontrolled with hypoglycemia on presentation. 4. Dysphagia. PLAN: Seen by speech therapy who did a swallow evaluation by fluoroscopy, also GI is planning to do an EGD. MMODL / IJN: [id number] /
[2018-12-12] MEDS: SODIUM CHLORIDE 0.9% 1,000 ML IV SCH ×3 (03:00→23:18)
[2018-12-12] MEDS ORDERED: LACTATED RINGERS 1,000 ML IV SCH (06:38)
[2018-12-12 07:01] LABS: Glucose,Whole Blood 63 mg/dL (75-99)
[2018-12-12] MEDS: INSULIN ASPART (NovoLOG) 100 UNIT/ML VIAL SQ SCH ×7 (07:02→20:10)
[2018-12-12] MEDS: PANTOPRAZOLE 40 MG TABLET PO SCH (07:03)
[2018-12-12 07:13] LABS: Glucose,Whole Blood 76 mg/dL (75-99)
[2018-12-12] MEDS: IPRATROPIUM-ALBUTEROL 3 ML NEB INHALATION SCH ×4 (08:24→19:44)
[2018-12-12] MEDS: BUDESONIDE 1 MG/2 ML NEBU INHALATION SCH ×2 (08:24→19:44)
[2018-12-12] MEDS: ASPIRIN 325 MG TAB PO SCH (09:21)
[2018-12-12] MEDS: ENOXAPARIN 40 MG/0.4 ML SYRINGE SQ SCH (09:31)
[2018-12-12] MEDS: METOPROLOL TARTRATE 12.5 MG TAB PO SCH ×2 (09:31→20:10)
[2018-12-12] MEDS: GABAPENTIN 300 MG CAP PO SCH ×2 (09:31→14:11)
[2018-12-12] MEDS: FUROSEMIDE 40 MG TAB PO SCH (09:31)
[2018-12-12] MEDS: CARBIDOPA-LEVODOPA 25-100 MG 1 EACH TAB PO SCH ×3 (09:31→20:11)
[2018-12-12] MEDS: FAMOTIDINE 20 MG TAB PO SCH (09:31)
[2018-12-12] MEDS: PARoxetine 20 MG TAB PO SCH (09:32)
[2018-12-12] MEDS: POTASSIUM CHLORIDE ER 20 MEQ TAB.ER PO SCH (09:32)
[2018-12-12 11:35] LABS: Glucose,Whole Blood 59 mg/dL (75-99)
[2018-12-12 11:41] LABS: Glucose,Whole Blood 71 mg/dL (75-99)
[2018-12-12] MEDS: ALLOPURINOL 300 MG TAB PO SCH (14:11)
[2018-12-12] MEDS ORDERED: IV FLUID CONTINUATION 600 ML IV ONE (14:26)
[2018-12-12] MEDS ORDERED: PROPOFOL 10 MG/ML 20 ML VIAL IV ONE (14:28)
[2018-12-12] MEDS ORDERED: LIDOCAINE 1% INJ 10MG/ML (20 ML MDV) ONE (14:28)
--- NOTE | 2018-12-12 14:58 | P.PCN ---
Date of Procedure: 12/12/18 Description of Procedure: BRIEF HISTORY: 73-year-old female with a history of lung cancer, CAD, COPD, insulin-dependent diabetes mellitus admitted with altered mental status elevated serum glucose 520. Consult requested for dysphagia. Patient states her last months she's had progressive dysphagia with liquids and solids sometimes with a "stuck feeling in the middle of my chest". Reports weight loss but cannot quantify. Admission weight 60 kg reviewing previous medical records she was 73 kg August 2017 3 weeks ago she reports a one time red blood tinged emesis with no recurrence. Denies hematochezia or melena. No history of EGD. . PROCEDURE PERFORMED: Esophagogastroduodenoscopy with biopsy. PREOPERATIVE DIAGNOSIS: Esophageal dysphagia. ESTIMATED BLOOD LOSS: Minimal. IV sedation per anesthesia. PROCEDURE: After informed consent was obtained, the patient was brought into the endoscopy unit. IV sedation was administered by Anesthesia under continuous monitoring. Initially the Olympus GIF-190 video endoscope was inserted into the mouth. Esophagus intubated without any difficulty. It was gradually advanced into the stomach and duodenum and carefully examined. The bulb and the second part of the duodenum were significant for some mild erythema suggestive of duodenitis with biopsies taken. The scope at this time was withdrawn to the stomach, adequately insufflated with air, and upon careful examination, mucosa of the antrum, body, cardia and the fundus appeared grossly normal, with mild scattered erythema and nodularity in the antrum and body suggestive of mild gastritis with biopsies taken. Small hiatal hernia was noted. The scope was then withdrawn into the esophagus. The GE junction was located at 40 cm from the incisors. The esophagus appeared normal. There were no erosions or ulcerations or rings or other pathology to explain symptoms of dysphagia. Mid esophageal biopsies were taken to rule out EOE. The patient tolerated the procedure well. IMPRESSION: 1. Mild gastritis antrum and body, biopsied. 2. Duodenitis, biopsied. 3. Small hiatal hernia. 4. Mid esophageal biopsies to rule out EOE. 5. No esophageal abnormalities to explain symptoms of dysphagia. RECOMMENDATIONS: The findings of this examination were discussed with the patient in the nursing staff. Okay to resume diet as tolerated. Await pathology from biopsies. If symptoms persist came follow-up in the outpatient setting for further evaluation including manometry.
[2018-12-12 16:46] LABS: Glucose,Whole Blood 84 mg/dL (75-99)
[2018-12-12 19:49] LABS: Glucose,Whole Blood 285 mg/dL (75-99)
[2018-12-12] MEDS: CAPTOPRIL 25 MG TAB PO SCH (20:11)
[2018-12-12] MEDS: ATORVASTATIN 40 MG TAB PO SCH (20:11)
[2018-12-12] MEDS: NICOTINE 21MG/24HR PATCH TRANSDERM SCH (20:47)
[2018-12-12] MEDS ORDERED: INSULIN DETEMIR (LEVEMIR) 100 UNIT/ML SYR SQ SCH (21:00)
--- NOTE | 2018-12-12 23:38 | PN ---
PROGRESS NOTE DATE OF SERVICE: 12/12/2018. PRESENTING COMPLAINT: Tired. INTERVAL HISTORY: This patient presented weak and tired. Sugars running really high. Doing somewhat better this morning, actually more communicative, able answer questions. It seems that the patient was probably delirious and encephalopathy when she presented. The patient of course has some underlying cognitive impairment, but doing better than before. The patient did have an EGD done earlier today, shows some gastritis. REVIEW OF SYSTEMS: Done for constitutional, cardiovascular, GI, pulmonary; relevant findings as above. CURRENT MEDICATIONS: Reviewed. PHYSICAL EXAMINATION: Temperature 98, pulse 71, respirations 17, blood pressure 118/69, pulse ox 97% on room air. GENERAL APPEARANCE: Sitting up more awake. EYES: Pupils equal. Conjunctivae normal. NECK: JVD not raised. Mass not palpable. Respiratory effort normal. LUNGS: Diminished breath sounds. CARDIOVASCULAR: First and second sounds normal. No edema. ABDOMEN: Soft, nontender. Liver and spleen not palpable. PSYCHIATRY: The patient is more communicative today and knows that she is in the hospital here for treatment, knows the year and the month and can also talk about her home surroundings. INVESTIGATIONS: EGD results are noted Accu-Cheks low 59, 71, 71. ASSESSMENT: 1. Coronary artery disease. 2. Chronic obstructive pulmonary disease in a smoker. 3. Diabetes mellitus type 2 uncontrolled with hyperglycemia on presentation, now hypoglycemic. 4. Dysphagia, probably from dry mouth improving. 5. Dehydration on presentation. 6. Mild cognitive impairment probably from late onset Alzheimer's dementia. PLAN: I had a very lengthy talk with the social service technician and also spoke with the patient present with social service technician. The patient's niece stayed to check on her for about 2 hours. Will have niece stagger the visits to the patient twice a day as I think at this point, patient should be able to manage as an acute metabolic encephalopathy/delirium stages are doing better. Will also DC patient's Neurontin. Will also cut back on patient's dose of Levemir. The patient's blood pressure is running low. We will DC the Lopressor. We will also DC patient's Neurontin. Also DC the Lasix and potassium supplement. We will add Metamucil. Will watch the patient for at least another 24 hours. Social Work is working with the patient's niece to change of visit timings to twice a day. Total time spent today was about 40 minutes with over 25 minutes of discussion. MMODL / IJN: [id number] /
[2018-12-13 07:23] LABS: Glucose,Whole Blood 60 mg/dL (75-99)
[2018-12-13] MEDS: INSULIN ASPART (NovoLOG) 100 UNIT/ML VIAL SQ SCH ×7 (07:56→20:48)
[2018-12-13 07:58] LABS: Glucose,Whole Blood 93 mg/dL (75-99)
[2018-12-13 08:15] LABS: Blood Urea Nitrogen 11 mg/dL (7-17); Calcium 9.4 mg/dL (8.4-10.2); Carbon Dioxide 29 mmol/L (22-30); Chloride 108 mmol/L (98-107); Potassium 3.2 mmol/L (3.5-5.1)
[2018-12-13] MEDS: CARBIDOPA-LEVODOPA 25-100 MG 1 EACH TAB PO SCH ×3 (08:17→20:46)
[2018-12-13] MEDS: ASPIRIN 81 MG PO SCH (08:17)
[2018-12-13] MEDS: FAMOTIDINE 20 MG TAB PO SCH ×2 (08:17→20:48)
[2018-12-13] MEDS: PARoxetine 20 MG TAB PO SCH (08:17)
[2018-12-13] MEDS: ENOXAPARIN 40 MG/0.4 ML SYRINGE SQ SCH (08:17)
[2018-12-13] MEDS: PSYLLIUM HUSK 100% 6 GM PACKET PO SCH (08:17)
[2018-12-13 08:43] LABS: Anion Gap 3 mmol/L; Glucose 38 mg/dL (74-99); Sodium 140 mmol/L (137-145)
[2018-12-13] MEDS: BUDESONIDE 1 MG/2 ML NEBU INHALATION SCH ×2 (09:03→20:12)
[2018-12-13] MEDS: IPRATROPIUM-ALBUTEROL 3 ML NEB INHALATION SCH ×5 (09:03→20:12)
--- NOTE | 2018-12-13 10:44 | P.PN ---
Subjective Progress Note Date: 12/13/18 Principal diagnosis: Dysphagia weight loss Prealbumin 11. Status post EGD findings of gastritis duodenitis biopsies pending. Tolerating diabetic diet without dysphagia odynophagia. No emesis. Denies abdominal pain. Objective - Vital Signs Vital signs: Vital Signs Temp 97.9 F 12/13/18 07:00 Pulse 68 12/13/18 09:03 Resp 16 12/13/18 07:00 BP 133/76 12/13/18 07:00 Pulse Ox 96 12/13/18 07:00 Intake & Output 12/12/18 12/13/18 12/13/18 18:59 06:59 18:59 Intake Total 200 296 Balance 200 296 Intake: IV 200 Oral 296 Other: Voiding Method Toilet Toilet Toilet # Voids 3 1 - Exam General appearance: The patient is alert, oriented, in no acute distress. Cachectic appearance. HET: Head is normocephalic and atraumatic. Pupils are equal and reactive. Oropharynx is clear without lesions. Neck: Supple without lymphadenopathy. Trachea midline. Heart: S1 S2. Regular rate and rhythm. Lungs: No crackles or wheezes are heard. Abdomen: Soft, nontender, nondistended with bowel sounds. No peritoneal signs. No palpable organomegaly or masses. Extremities: Normal skin color and turgor. No cyanosis, rash, ulceration, clubbing, or edema. Radial and pedal pulses are 2/4 bilaterally. Neurological: No focal deficits. Strength and sensation are grossly intact. - Labs CBC & Chem 7: 12/10/18 16:40 12/13/18 06:33 Labs: Abnormal Lab Results - Last 24 Hours (Table) 12/11/18 12/12/18 12/12/18 Range/Units 06:46 11:23 11:39 Potassium (3.5-5.1) mmol/L Chloride (98-107) mmol/L Glucose (74-99) mg/dL POC Glucose (mg/dL) 59 L 71 L (75-99) mg/dL Prealbumin 11.0 L (18.0-42.0) mg/dL 12/12/18 12/13/18 12/13/18 Range/Units 19:34 06:33 07:12 Potassium 3.2 L (3.5-5.1) mmol/L Chloride 108 H (98-107) mmol/L Glucose 38 L* (74-99) mg/dL POC Glucose (mg/dL) 285 H 60 L (75-99) mg/dL Prealbumin (18.0-42.0) mg/dL Microbiology - Last 24 Hours (Table) 12/10/18 17:21 Blood Culture - Preliminary Blood No Growth after 48 hours Assessment and Plan (1) Dysphagia Narrative/Plan: 73-year-old female history of diabetes, lung cancer presents with altered mental status elevated glucose dysphagia 1 month with solids and liquids as well as an intentional weight loss, and isolated episode of blood-tinged emesis 3 weeks ago. Status post EGD with no evidence of neoplasm or stricture disease gastritis and duodenitis biopsies pending. Current Visit: Yes Status: Acute Code(s): R13.10 - DYSPHAGIA, UNSPECIFIED SNOMED Code(s): 77283567 (2) Unintentional weight loss Current Visit: Yes Status: Acute Code(s): R63.4 - ABNORMAL WEIGHT LOSS SNOMED Code(s): 852851617 (3) History of lung cancer Current Visit: Yes Status: Acute Code(s): Z85.118 - PERSONAL HISTORY OF MALIGNANT NEOPLASM OF BRONCHUS AND LUNG SNOMED Code(s): 011319569 (4) Altered mental status Current Visit: Yes Status: Acute Code(s): R41.82 - ALTERED MENTAL STATUS, UNSPECIFIED SNOMED Code(s): 220595012 (5) Elevated glucose Current Visit: Yes Status: Acute Code(s): R73.09 - OTHER ABNORMAL GLUCOSE SNOMED Code(s): 589876116 (6) Protein-calorie malnutrition, mild Narrative/Plan: Prealbumin 11. Serum albumin 3.4. BMI 24. Current Visit: Yes Status: Acute Code(s): E44.1 - MILD PROTEIN-CALORIE MALNUTRITION SNOMED Code(s): 61699095 Plan: 1. Symptomatic supportive measures. Protein shakes 3 times a day. Diet as tolerated. Protonix 40 mg daily. Follow up in the GI office 7-10 days after discharge. We'll follow on an as-needed basis. Assessment and plan a care discussed with Dr. Maki
[2018-12-13 11:00] LABS: Glucose,Whole Blood 252 mg/dL (75-99)
[2018-12-13 11:54] LABS: Glucose,Whole Blood 298 mg/dL (75-99)
[2018-12-13] MEDS: ALLOPURINOL 300 MG TAB PO SCH (14:54)
[2018-12-13 16:56] LABS: Glucose,Whole Blood 265 mg/dL (75-99)
[2018-12-13 20:24] LABS: Glucose,Whole Blood 241 mg/dL (75-99)
[2018-12-13] MEDS: ATORVASTATIN 40 MG TAB PO SCH (20:46)
[2018-12-13] MEDS: NICOTINE 21MG/24HR PATCH TRANSDERM SCH ×2 (20:48→21:14)
[2018-12-13] MEDS ORDERED: INSULIN DETEMIR (LEVEMIR) 100 UNIT/ML SYR SQ SCH (21:00)
--- NOTE | 2018-12-13 23:42 | PN ---
PROGRESS NOTE DATE OF SERVICE: 12/13/2018 PRESENTING COMPLAINT: Tired. INTERVAL HISTORY: This patient presented with some delirium and encephalopathy, especially from sugars being totally off. Now doing better. Patient had been hypoglycemic. Dose of Levemir has been cut back. Patient is able to communicate much better. fishing worker spoke to patient's niece, who is willing to adjust her schedule to be more present at home. REVIEW OF SYSTEMS: Done for constitutional, cardiovascular, GI, pulmonary; relevant findings as above. CURRENT MEDICATIONS: Reviewed. The patient's dose of Levemir is down to 26 units. PHYSICAL EXAMINATION: Temperature 99.6, pulse 81, respiration 15, blood pressure 121/71, pulse ox 95% on room air. GENERAL APPEARANCE: Sitting up. Awake. EYES: Pupils equal. Conjunctivae normal. NECK: JVD not raised. Mass not palpable. RESPIRATORY: Effort normal. LUNGS: Decreased breath sounds. CARDIOVASCULAR: First and second sounds normal. No edema. ABDOMEN: Soft, non-tender. Patient is able to carry on a simple conversation. INVESTIGATIONS: Glucose 93, 252, 298, 265, 241. ASSESSMENT: 1. Coronary artery disease. 2. Chronic obstructive pulmonary disease in a smoker. 3. Diabetes mellitus, type 2, uncontrolled with hyperglycemia and hypoglycemia. 4. Dysphagia, probably from dry mouth. 5. Dehydration on presentation. 6. 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 PLAN: Patient's insulin dose was adjusted. I may switch the patient over to Novolin 70/30, depending on what the sugars do today. As for more convenience based on patient's eating pattern, that will be determined over the course of the next 24 hours. MMODL / IJN: [id number] /
[2018-12-14 06:59] LABS: Glucose,Whole Blood 70 mg/dL (75-99)
[2018-12-14 07:23] VITALS: RESP 16
[2018-12-14 07:32] LABS: Anion Gap 2 mmol/L; Blood Urea Nitrogen 13 mg/dL (7-17); Carbon Dioxide 32 mmol/L (22-30); Chloride 106 mmol/L (98-107); Glucose 65 mg/dL (74-99); Potassium 3.6 mmol/L (3.5-5.1); Sodium 140 mmol/L (137-145)
[2018-12-14] MEDS: INSULIN ASPART (NovoLOG) 100 UNIT/ML VIAL SQ SCH ×4 (07:58→12:00)
[2018-12-14] MEDS: PSYLLIUM HUSK 100% 6 GM PACKET PO SCH (07:59)
[2018-12-14] MEDS: PARoxetine 20 MG TAB PO SCH (08:02)
[2018-12-14] MEDS: ASPIRIN 81 MG PO SCH (08:02)
[2018-12-14] MEDS: FAMOTIDINE 20 MG TAB PO SCH (08:02)
[2018-12-14] MEDS: CARBIDOPA-LEVODOPA 25-100 MG 1 EACH TAB PO SCH ×2 (08:02→15:52)
[2018-12-14] MEDS: ENOXAPARIN 40 MG/0.4 ML SYRINGE SQ SCH (08:02)
[2018-12-14] MEDS: IPRATROPIUM-ALBUTEROL 3 ML NEB INHALATION SCH ×3 (08:48→16:24)
[2018-12-14] MEDS: BUDESONIDE 1 MG/2 ML NEBU INHALATION SCH (08:48)
[2018-12-14 12:02] LABS: Glucose,Whole Blood 205 mg/dL (75-99)
[2018-12-14] MEDS: ALLOPURINOL 300 MG TAB PO SCH (13:08)
[2018-12-14 14:49] VITALS: BP 125/68; PULSE 90; TEMP 99
--- NOTE | 2018-12-16 00:59 | DS ---
DISCHARGE SUMMARY DATE OF ADMISSION: 12/11/2018 DATE OF DISCHARGE: 12/14/2018 FINAL DIAGNOSES: 1. Acute delirium present on admission, multifactorial, POA. 2. Coronary artery disease. 3. Chronic obstructive pulmonary disease in a smoker. 4. Diabetes mellitus type 2, uncontrolled with both hyper and hypoglycemia. 5. Dysphagia on admission from dry mouth, improved. 6. Dehydration on presentation. 7. Mild cognitive impairment from late onset Alzheimer's dementia. HOSPITAL COURSE: This patient presented with rather confused sugars running in 500. The patient was hydrated to which she responded well. Also, insulin dose was adjusted. The patient started eating much better. She was rather confused initially when she presented, felt to be delirious but improved after hydration. The patient's niece is involved in the care of the patient. Does get paid 500 dollars by the State. The day of discharge, I spoke at length with Lorraine and coordinated the patient's insulin. The patient's niece will check in twice a day. I have changed the Lantus and short-acting insulin to 70/30 twice a day results of which are equally good in the correction, especially more convenient in this clinical setting. The patient is tolerating a diet, able to answer simple questions and carry out a conversation. She is able to take a simple decisions at the present time. Discussion and discharge planning more than 35 minutes. PHYSICAL EXAMINATION: Temperature 99, pulse 90, respiration 16, blood pressure 125/60, pulse ox 95% on room air. Lungs slightly decreased breath sounds. Cardiovascular: 1st and 2nd sounds normal. Patient able to carry on a simple conversation. INVESTIGATIONS: Potassium 3.6, BUN 13, creatinine 0.68. The patient's CT scan of the brain did show chronic changes. DISCHARGE MEDICATIONS: 1. Ventolin HFA 2 puffs q.4 p.r.n. 2. Allopurinol 300 mg a day. 3. Lipitor 40 mg q.h.s. 4. Qvar 40 mcg 2 puffs b.i.d. 5. Symbicort 160/4.5 one puff b.i.d. 6. Sinemet 20/100 1 tablet p.o. t.i.d. 7. Nitrostat 0.4 sublingual q.5 p.r.n. 8. Paxil 40 mg p.o. daily. 9. Zantac 150 mg p.o. b.i.d. 10.Aspirin 81 mg p.o. daily. 11.Humulin 70/30. 12.FlexPen 20 units subcu a.c. b.i.d. 13.DuoNeb t.i.d. 14.Nicotine patch 21. 15.Metamucil 6 grams p.o. daily. Accu-Cheks every a.c. and q.h.s. FOLLOWUP: Follow up with Dr. Pan in 2-3 days. Take Accu-Cheks log. Follow up with Dr. Maki on January 04, 2019. Glucometer was supplied. Discussion and discharge planning more than [address] Pan. MMCISCOL / SAPNAN: [id number] /
== END 2018-12-14 16:55 | disposition home health service (06) | DRG 637 ==
LOC: EC 16:23 → INTOOBSV 20:11 → 4SSUR 20:11 → OBSVTOIN 12-11 15:05
PROVIDERS: ADMIT Hospitalist; ATTEND Hospitalist
PROC: 0DB68ZX Excision of Stomach, Via Natural or Artificial Opening Endoscopic, Diagnostic (ICD-10-PCS; principal; 2018-12-11)
PROC: 0DB78ZX Excision of Stomach, Pylorus, Via Natural or Artificial Opening Endoscopic, Diagnostic (ICD-10-PCS; 2018-12-11)
DX: E11.65 Type 2 diabetes mellitus with hyperglycemia (principal); G93.41 Metabolic encephalopathy; E44.1 Mild protein-calorie malnutrition; E87.4 Mixed disorder of acid-base balance; E11.649 Type 2 diabetes mellitus with hypoglycemia without coma; E87.8 Other disorders of electrolyte and fluid balance, not elsewhere classified; J44.9 Chronic obstructive pulmonary disease, unspecified; R13.14 Dysphagia, pharyngoesophageal phase; I45.81 Long QT syndrome; E86.0 Dehydration; F02.80 Dementia in other diseases classified elsewhere, unspecified severity, without behavioral disturbance, psychotic disturbance, mood disturbance, and anxiety; G30.1 Alzheimer's disease with late onset; E87.6 Hypokalemia; F17.210 Nicotine dependence, cigarettes, uncomplicated; I25.10 Atherosclerotic heart disease of native coronary artery without angina pectoris; I25.2 Old myocardial infarction; R41.0 Disorientation, unspecified; K29.70 Gastritis, unspecified, without bleeding; K29.80 Duodenitis without bleeding; K44.9 Diaphragmatic hernia without obstruction or gangrene; Z68.24 Body mass index [BMI] 24.0-24.9, adult; Z79.4 Long term (current) use of insulin; Z79.51 Long term (current) use of inhaled steroids; Z79.82 Long term (current) use of aspirin; Z79.899 Other long term (current) drug therapy; Z95.5 Presence of coronary angioplasty implant and graft; Z85.118 Personal history of other malignant neoplasm of bronchus and lung; Z88.8 Allergy status to other drugs, medicaments and biological substances; Z88.6 Allergy status to analgesic agent; Z91.013 Allergy to seafood; Z80.9 Family history of malignant neoplasm, unspecified; Z82.3 Family history of stroke
CPT/HCPCS: 36415; 43239; 70450; 71045; 74230; 80048; 80053; 81003; 82009; 82550; 82803; 83690; 83735; 84134; 85025; 87040; 87086; 88305; 93005; 94640; 96361; 96365; 96366; 99285

== ENCOUNTER → 2019-01-19 | Outpatient (CLI) | payer MEDICARE, OTHER ==
[2019-01-19 17:03] LABS: Albumin 3.9 g/dL (3.80-4.90); Albumin/Globulin Ratio 2.17 (1.60-3.17); Anion Gap 8.4 mmol/L (4.00-12.00); Calcium 9.6 mg/dL (8.7-10.3); Carbon Dioxide 31.6 mmol/L (21.6-31.8); Globulin 1.8 g/dL (1.6-3.3); Potassium 4.1 mmol/L (3.5-5.5); Total Bilirubin 1.2 mg/dL (0.2-1.2); Total Protein 5.7 g/dL (6.2-8.2)
== END | disposition home or self-care (01) ==
LOC: LABWHC1 09:22
PROVIDERS: ATTEND Internal Medicine Endocrinology, Diabetes & Metabolism
DX: E11.65 Type 2 diabetes mellitus with hyperglycemia (principal)
CPT/HCPCS: 36415; 80053; 84681

== ENCOUNTER 2019-01-28 11:59 | Observation (INO) | payer MEDICARE, OTHER ==
[2019-01-28 12:18] LABS: Glucose,Whole Blood 108 mg/dL (75-99)
[2019-01-28] MEDS ORDERED: SODIUM CHLORIDE 0.9% 1,000 ML IV STA ×2 (12:44→15:31)
--- NOTE | 2019-01-28 13:05 | ED ---
Weakness HPI - General Chief complaint: Fall Stated complaint: Fall/ low blood sugar Time Seen by Provider: 01/28/19 12:43 Source: EMS, RN notes reviewed, old records reviewed Mode of arrival: EMS Limitations: no limitations - History of Present Illness Initial comments: This is a 73-year-old female the ER for evaluation. Patient presented for multiple falls and low blood sugar. Patient's poor historian history is obtained by EMS and patient's chart. MD Complaint: generalized weakness, lack of energy, difficulty walking (Falls) -: unknown Location: generalized Severity: mild Quality: other (Patient denies pain) Consistency: constant Improves with: none Worsens with: none Associated Symptoms: denies other symptoms - Related Data Home Medications Medication Instructions Recorded Confirmed Albuterol Inhaler [Ventolin Hfa 2 puff INHALATION RT-Q4H PRN 08/11/17 01/28/19 Inhaler] Allopurinol [Zyloprim] 300 mg PO DAILY@1400 08/11/17 01/28/19 Atorvastatin [Lipitor] 40 mg PO HS@2200 08/11/17 01/28/19 Beclomethasone Dipropionate [Qvar 2 puff INHALATION RT-BID 08/11/17 01/28/19 40 mcg] Budesonide/Formoterol Fumarate 1 puff INHALATION RT-BID 08/11/17 01/28/19 [Symbicort 160-4.5 Mcg Inhaler] Carbidopa-Levodopa 25-100 mg 1 tab PO TID 08/11/17 01/28/19 [Sinemet 25-100 mg] Nitroglycerin Sl Tabs [Nitrostat] 0.4 mg SUBLINGUAL Q5M PRN 08/11/17 01/28/19 PARoxetine HCL [Paxil] 40 mg PO QAM@0900 08/11/17 01/28/19 Ranitidine HCl 150 mg PO BID@0900,2200 08/11/17 01/28/19 Dulaglutide [Trulicity] 1.5 mg SQ Q7D 01/28/19 01/28/19 Previous Rx's Medication Instructions Recorded Aspirin 81 mg PO DAILY chew 12/14/18 Ipratropium-Albuterol Nebulize 3 ml INHALATION TID #90 neb 12/14/18 [Duoneb 0.5 mg-3 mg/3 ml Soln] Nicotine 21Mg/24Hr Patch [Habitrol] 1 patch TRANSDERM DAILY@2100 #30 12/14/18 patch Psyllium Husk 100% [Metamucil 6 gm PO DAILY #30 packet 12/14/18 Packet] Allergies Allergy/AdvReac Type Severity Reaction Status Date / Time diltiazem [From Cardizem] Allergy Itching Verified 01/28/19 12:18 ibuprofen Allergy Swelling Verified 01/28/19 12:18 shellfish derived [Shellfish] Allergy Unknown Verified 01/28/19 12:18 Review of Systems ROS Statement: Those systems with pertinent positive or pertinent negative responses have been documented in the HPI. ROS Other: All systems not noted in ROS Statement are negative. Past Medical History Past Medical History: Coronary Artery Disease (CAD), Cancer, COPD, Diabetes Mellitus, Myocardial Infarction ([place]) Additional Past Medical History / Comment(s): Lung Ca Last Myocardial Infarction Date:: 1991 History of Any Multi-Drug Resistant Organisms: None Reported Past Surgical History: Heart Catheterization With Stent Additional Past Surgical History / Comment(s): Stents x7; Left lung lobectomy r/t cancer Past Anesthesia/Blood Transfusion Reactions: No Reported Reaction Date of Last Stent Placement:: 1998? Past Psychological History: No Psychological Hx Reported Smoking Status: Light tobacco smoker Past Alcohol Use History: None Reported Past Drug Use History: None Reported - Past Family History Father Family Medical History: Cancer Additional Family Medical History / Comment(s): 64 Mother Family Medical History: CVA/TIA Additional Family Medical History / Comment(s): 72 General Exam Limitations: no limitations General appearance: alert, in no apparent distress Head exam: Present: atraumatic, normocephalic, normal inspection Eye exam: Present: normal appearance, PERRL, EOMI. Absent: scleral icterus, conjunctival injection, periorbital swelling ENT exam: Present: normal exam, mucous membranes moist Neck exam: Present: normal inspection. Absent: tenderness, meningismus, lymphadenopathy Respiratory exam: Present: normal lung sounds bilaterally. Absent: respiratory distress, wheezes, rales, rhonchi, stridor Cardiovascular Exam: Present: regular rate, normal rhythm, normal heart sounds. Absent: systolic murmur, diastolic murmur, rubs, gallop, clicks GI/Abdominal exam: Present: soft, normal bowel sounds. Absent: distended, tenderness, guarding, rebound, rigid Extremities exam: Present: normal inspection, full ROM, normal capillary refill. Absent: tenderness, pedal edema, joint swelling, calf tenderness Back exam: Present: normal inspection Neurological exam: Present: alert, oriented X3, CN II-XII intact Psychiatric exam: Present: normal affect, normal mood Skin exam: Present: warm, dry, intact, normal color. Absent: rash Course Vital Signs 01/28/19 01/28/19 01/28/19 12:15 13:12 14:50 Temperature 97.6 F Pulse Rate 81 76 76 Respiratory 18 16 18 Rate Blood Pressure 107/84 122/92 118/89 O2 Sat by Pulse 92 L 99 94 L Oximetry 01/28/19 01/28/19 15:48 17:03 Temperature Pulse Rate 75 76 Respiratory 16 16 Rate Blood Pressure 110/90 120/82 O2 Sat by Pulse 94 L 91 L Oximetry - Reevaluation(s) Reevaluation #1: medical record is reviewed Patient does have recurrent hyperglycemia here in the ER, poor historian EKG Findings - EKG Comments: EKG Findings:: EKG shows normal sinus rhythm rate of 79, OK 140, QRS 150, QTc 561 Medical Decision Making - Medical Decision Making 73 female to the ED w c/o falls secondary to recurrent hypoglycemia, patient has continue dropping of blood sugar here in ED, malnourished and dehydrated, will admit for observation of bloood sugar. - Lab Data Result diagrams: 01/28/19 13:05 01/28/19 13:05 Lab Results 01/28/19 01/28/19 01/28/19 Range/Units 12:15 12:50 13:05 WBC 9.5 (3.8-10.6) k/uL RBC 5.33 (3.80-5.40) m/uL Hgb 14.8 (11.4-16.0) gm/dL Hct 46.3 H (34.0-46.0) % MCV 86.9 (80.0-100.0) fL MCH 27.7 (25.0-35.0) pg MCHC 31.9 (31.0-37.0) g/dL RDW 15.6 H (11.5-15.5) % Plt Count 271 (150-450) k/uL Neutrophils % 86 % Lymphocytes % 8 % Monocytes % 4 % Eosinophils % 1 % Basophils % 0 % Neutrophils # 8.2 H (1.3-7.7) k/uL Lymphocytes # 0.7 L (1.0-4.8) k/uL Monocytes # 0.4 (0-1.0) k/uL Eosinophils # 0.1 (0-0.7) k/uL Basophils # 0.0 (0-0.2) k/uL Hypochromasia Slight PT (9.0-12.0) sec INR (<1.2) APTT (22.0-30.0) sec Sodium (137-145) mmol/L Potassium (3.5-5.1) mmol/L Chloride (98-107) mmol/L Carbon Dioxide (22-30) mmol/L Anion Gap mmol/L BUN (7-17) mg/dL Creatinine (0.52-1.04) mg/dL Est GFR (CKD-EPI)AfAm (>60 ml/min/1.73 sqM) Est GFR (CKD-EPI)NonAf (>60 ml/min/1.73 sqM) Glucose (74-99) mg/dL POC Glucose (mg/dL) 108 H (75-99) mg/dL POC Glu Survey Party Chief ID Katelyn, Teodoro Calcium (8.4-10.2) mg/dL Phosphorus (2.5-4.5) mg/dL Magnesium (1.6-2.3) mg/dL Total Bilirubin (0.2-1.3) mg/dL AST (14-36) U/L ALT (9-52) U/L Alkaline Phosphatase (38-126) U/L Creatine Kinase (30-135) U/L CK-MB (CK-2) (0.0-2.4) ng/mL Troponin I (0.000-0.034) ng/mL Total Protein (6.3-8.2) g/dL Albumin (3.5-5.0) g/dL Urine Color Light Yellow Urine Appearance Clear (Clear) Urine pH 7.0 (5.0-8.0) Ur Specific [place] 1.006 (1.001-1.035) Urine Protein Negative (Negative) Urine Glucose (UA) 1+ H (Negative) Urine Ketones Negative (Negative) Urine Blood Negative (Negative) Urine Nitrite Negative (Negative) Urine Bilirubin Negative (Negative) Urine Urobilinogen <2.0 (<2.0) mg/dL Ur Leukocyte Esterase Negative (Negative) 01/28/19 01/28/19 01/28/19 Range/Units 13:05 13:05 13:05 WBC (3.8-10.6) k/uL RBC (3.80-5.40) m/uL Hgb (11.4-16.0) gm/dL Hct (34.0-46.0) % MCV (80.0-100.0) fL MCH (25.0-35.0) pg MCHC (31.0-37.0) g/dL RDW (11.5-15.5) % Plt Count (150-450) k/uL Neutrophils % % Lymphocytes % % Monocytes % % Eosinophils % % Basophils % % Neutrophils # (1.3-7.7) k/uL Lymphocytes # (1.0-4.8) k/uL Monocytes # (0-1.0) k/uL Eosinophils # (0-0.7) k/uL Basophils # (0-0.2) k/uL Hypochromasia PT 12.6 H (9.0-12.0) sec INR 1.2 H (<1.2) APTT 25.1 (22.0-30.0) sec Sodium 140 (137-145) mmol/L Potassium 3.4 L (3.5-5.1) mmol/L Chloride 102 (98-107) mmol/L Carbon Dioxide 32 H (22-30) mmol/L Anion Gap 6 mmol/L BUN 15 (7-17) mg/dL Creatinine 0.55 (0.52-1.04) mg/dL Est GFR (CKD-EPI)AfAm >90 (>60 ml/min/1.73 sqM) Est GFR (CKD-EPI)NonAf >90 (>60 ml/min/1.73 sqM) Glucose 58 L (74-99) mg/dL POC Glucose (mg/dL) (75-99) mg/dL POC Glu Survey Party Chief ID Calcium 9.4 (8.4-10.2) mg/dL Phosphorus 3.7 (2.5-4.5) mg/dL Magnesium 1.7 (1.6-2.3) mg/dL Total Bilirubin 1.6 H (0.2-1.3) mg/dL AST 47 H (14-36) U/L ALT 33 (9-52) U/L Alkaline Phosphatase 205 H (38-126) U/L Creatine Kinase 191 H (30-135) U/L CK-MB (CK-2) 4.2 H (0.0-2.4) ng/mL Troponin I 0.022 (0.000-0.034) ng/mL Total Protein 5.8 L (6.3-8.2) g/dL Albumin 3.4 L (3.5-5.0) g/dL Urine Color Urine Appearance (Clear) Urine pH (5.0-8.0) Ur Specific [place] (1.001-1.035) Urine Protein (Negative) Urine Glucose (UA) (Negative) Urine Ketones (Negative) Urine Blood (Negative) Urine Nitrite (Negative) Urine Bilirubin (Negative) Urine Urobilinogen (<2.0) mg/dL Ur Leukocyte Esterase (Negative) 01/28/19 01/28/19 Range/Units 14:02 14:52 WBC (3.8-10.6) k/uL RBC (3.80-5.40) m/uL Hgb (11.4-16.0) gm/dL Hct (34.0-46.0) % MCV (80.0-100.0) fL MCH (25.0-35.0) pg MCHC (31.0-37.0) g/dL RDW (11.5-15.5) % Plt Count (150-450) k/uL Neutrophils % % Lymphocytes % % Monocytes % % Eosinophils % % Basophils % % Neutrophils # (1.3-7.7) k/uL Lymphocytes # (1.0-4.8) k/uL Monocytes # (0-1.0) k/uL Eosinophils # (0-0.7) k/uL Basophils # (0-0.2) k/uL Hypochromasia PT (9.0-12.0) sec INR (<1.2) APTT (22.0-30.0) sec Sodium (137-145) mmol/L Potassium (3.5-5.1) mmol/L Chloride (98-107) mmol/L Carbon Dioxide (22-30) mmol/L Anion Gap mmol/L BUN (7-17) mg/dL Creatinine (0.52-1.04) mg/dL Est GFR (CKD-EPI)AfAm (>60 ml/min/1.73 sqM) Est GFR (CKD-EPI)NonAf (>60 ml/min/1.73 sqM) Glucose (74-99) mg/dL POC Glucose (mg/dL) 50 L 131 H (75-99) mg/dL POC Glu Survey Party Chief Corrine Best Lacey Calcium (8.4-10.2) mg/dL Phosphorus (2.5-4.5) mg/dL Magnesium (1.6-2.3) mg/dL Total Bilirubin (0.2-1.3) mg/dL AST (14-36) U/L ALT (9-52) U/L Alkaline Phosphatase (38-126) U/L Creatine Kinase (30-135) U/L CK-MB (CK-2) (0.0-2.4) ng/mL Troponin I (0.000-0.034) ng/mL Total Protein (6.3-8.2) g/dL Albumin (3.5-5.0) g/dL Urine Color Urine Appearance (Clear) Urine pH (5.0-8.0) Ur Specific [place] (1.001-1.035) Urine Protein (Negative) Urine Glucose (UA) (Negative) Urine Ketones (Negative) Urine Blood (Negative) Urine Nitrite (Negative) Urine Bilirubin (Negative) Urine Urobilinogen (<2.0) mg/dL Ur Leukocyte Esterase (Negative) Disposition Clinical Impression: Fall, IDDM (insulin dependent diabetes mellitus), Hypoglycemia, Altered mental status, Dehydration Disposition: ADMITTED IP TO THIS HOSP Condition: Fair Is patient prescribed a controlled substance at d/c from ED?: No
[2019-01-28 13:12] LABS: Appearance,Urine Clear (Clear); Bilirubin,Urine Negative (Negative); Blood,Urine Negative (Negative); Color,Urine Light Yellow; Glucose,Urine (UA) 1+ (Negative); Ketones,Urine Negative (Negative); Leukocyte Esterase,Urine Negative (Negative); Nitrite,Urine Negative (Negative); Protein,Urine Negative (Negative); Specific Gravity,Urine 1.006 (1.001-1.035); Urobilinogen,Urine <2.0 mg/dL (<2.0)
[2019-01-28 13:30] LABS: Basophils % (A) 0 %; Eosinophils # (A) 0.1 k/uL (0-0.7); Eosinophils % (A) 1 %; HCT 46.3 % (34.0-46.0); HGB 14.8 gm/dL (11.4-16.0); Hypochromasia Slight; Lymphocytes # (A) 0.7 k/uL (1.0-4.8); Lymphocytes % (A) 8 %; MCH 27.7 pg (25.0-35.0); MCHC 31.9 g/dL (31.0-37.0); MCV 86.9 fL (80.0-100.0); Mean Platelet Volume 7.5; Monocytes # (A) 0.4 k/uL (0-1.0); Monocytes % (A) 4 %; Neutrophils # (A) 8.2 k/uL (1.3-7.7); Neutrophils % (A) 86 %; Platelet Count 271 k/uL (150-450); RBC 5.33 m/uL (3.80-5.40); RDW 15.6 % (11.5-15.5); WBC 9.5 k/uL (3.8-10.6)
[2019-01-28 13:33] LABS: INR 1.2 (<1.2); Partial Thromboplastin Time 25.1 sec (22.0-30.0); Prothrombin Time 12.6 sec (9.0-12.0)
[2019-01-28 13:41] LABS: ALT 33 U/L (9-52); AST 47 U/L (14-36); Albumin 3.4 g/dL (3.5-5.0); Alkaline Phosphatase 205 U/L (38-126); Anion Gap 6 mmol/L; Blood Urea Nitrogen 15 mg/dL (7-17); Calcium 9.4 mg/dL (8.4-10.2); Carbon Dioxide 32 mmol/L (22-30); Chloride 102 mmol/L (98-107); Creatine Kinase 191 U/L (30-135); Glucose 58 mg/dL (74-99); Magnesium 1.7 mg/dL (1.6-2.3); Phosphorus 3.7 mg/dL (2.5-4.5); Potassium 3.4 mmol/L (3.5-5.1); Sodium 140 mmol/L (137-145); Total Bilirubin 1.6 mg/dL (0.2-1.3); Total Protein 5.8 g/dL (6.3-8.2)
[2019-01-28 13:58] LABS: Creatine Kinase MB 4.2 ng/mL (0.0-2.4); Troponin I 0.022 ng/mL (0.000-0.034)
[2019-01-28 14:13] LABS: Glucose,Whole Blood 50 mg/dL (75-99)
[2019-01-28] MEDS ORDERED: DEXTROSE 50% SYRINGE 50 ML IVP STA (14:24)
--- NOTE | 2019-01-28 14:33 | CT ---
EXAMINATION TYPE: CT brain zelda dover con DATE OF EXAM: 01/28/2019 COMPARISON: 12/20/2017 HISTORY: Fall CT DLP: 1328.[address] of the brain was performed. The ventricles, basal cisterns and sulci overlying the cerebral convexities demonstrate mild enlargem ent. There is no evidence for intracranial hemorrhage or sulcal effacement. There is decreased attenuatio n about the periventricular white matter and deep white matter of both cerebral hemispheres, compatib le with chronic small vessel ischemia. No mass effects are seen. If symptoms persist consider MRI. Osseous calvarium is intact. IMPRESSION: 1. Age related atrophic and chronic small vessel ischemic change without acute intracranial process seen at this time. CT Cervical Spine: Unenhanced CT of the cervical spine was performed with bone and soft tissue window settings submitted . Coronal and sagittal reconstruction is obtained. There is normal alignment and prevertebral soft tissues. No evidence for acute cervical fracture . Scattered degenerative disc disease and spondylosis. Scattered upper lobe infiltrates and pleural eff usions. IMPRESSION: 1. No evidence for acute fracture or subluxation of the cervical spine.
[2019-01-28 14:54] LABS: Glucose,Whole Blood 131 mg/dL (75-99)
--- NOTE | 2019-01-28 15:16 | XR ---
EXAMINATION TYPE: XR ribs LT w pa chest xray DATE OF EXAM: 01/28/2019 COMPARISON: NONE HISTORY: Pain TECHNIQUE: Single view of the chest 4 views of the ribs are submitted. FINDINGS: There is evidence of COPD. Left-sided pleural effusion noted. There is evidence of cardiome juliano. No Evidence for pneumothorax. No evidence for focal contusion. Mediastinal structures are mid line. Evaluation of the ribs fails to demonstrate evidence for acute displaced rib fracture or secon daniella sign of rib fracture. Deformity left rib 5. Appears to be chronic in nature. IMPRESSION: 1. No acute displaced rib fracture. 2. Cardiomegaly left-sided pleural effusion with underlying COPD.
[2019-01-28] MEDS ORDERED: DEXTROSE 5%-0.45% NACL 1,000 ML IV ONE (15:31)
[2019-01-28 15:44] LABS: Glucose,Whole Blood 95 mg/dL (75-99)
[2019-01-28 19:47] LABS: Glucose,Whole Blood 160 mg/dL (75-99)
[2019-01-28] MEDS ORDERED: ALBUTEROL NEBULIZED 2.5 MG/3 ML INHALATION PRN (19:52)
[2019-01-28] MEDS ORDERED: NITROGLYCERIN SL TABS 0.4 MG TAB SUBLINGUAL PRN (19:52)
[2019-01-28] MEDS ORDERED: SYMBICORT 160-4.5 MCG INHALER INHALATION SCH (20:00)
[2019-01-28] MEDS ORDERED: FLUTICASONE 110 MCG INHALER INHALATION SCH (20:00)
[2019-01-28 21:57] LABS: Glucose,Whole Blood 175 mg/dL (75-99)
[2019-01-28] MEDS ORDERED: IPRATROPIUM-ALBUTEROL 3 ML NEB INHALATION SCH (22:00)
[2019-01-28] MEDS: FAMOTIDINE 20 MG TAB PO SCH (22:13)
[2019-01-28] MEDS: INSULIN ASPART (NovoLOG) 100 UNIT/ML VIAL SQ SCH (22:13)
[2019-01-28] MEDS: ATORVASTATIN 40 MG TAB PO SCH (22:13)
[2019-01-28] MEDS: CARBIDOPA-LEVODOPA 25-100 MG 1 EACH TAB PO SCH (22:13)
[2019-01-28] MEDS: NICOTINE 21MG/24HR PATCH TRANSDERM SCH (22:14)
[2019-01-29] MEDS: IPRATROPIUM-ALBUTEROL 3 ML NEB INHALATION SCH ×6 (00:04→20:30)
[2019-01-29 00:20] LABS: Glucose,Whole Blood 154 mg/dL (75-99)
[2019-01-29] MEDS: ACETAMINOPHEN TAB 325 MG TAB PO PRN ×2 (00:24→12:43)
[2019-01-29] MEDS: methylPREDNISolone SOD SUCCI 40 MG/ML 1 ML VIAL IV SCH ×3 (00:24→17:38)
--- NOTE | 2019-01-29 04:36 | HP ---
HISTORY AND PHYSICAL DATE OF ADMISSION: 01/28/2019 DATE OF SERVICE: 01/28/2019 PRESENTING COMPLAINT: Fall, low sugar. HISTORY OF PRESENTING COMPLAINT: This is a 73-year-old patient of Dr. Pan. Chronic stable medical conditions include coronary artery disease, COPD, gait dysfunction, dementia. The patient lives by herself. It seems patient's son is a durable power of employee benefits attorney, but has he had a fall out with the patient, the patient's niece is the 1 who helps her out. The patient is a smoker. The patient apparently was started recently on a new hypoglycemic and patient has been falling at home. Patient is found to have a sugar of 58 and hence was admitted for the same. The patient is not the most detailed historian, but can carry out a simple conversation. She also has been falling at home, does use a walker. No fever. No chills. Appetite is fair. Occasional cough. The patient is put on hypoglycemia protocol with D5 drip. REVIEW OF SYSTEMS: CONSTITUTIONAL: Tired. HEENT: Decreased hearing. RESPIRATORY: Some short of breath, cough. CARDIOVASCULAR: No chest pain. GASTROINTESTINAL none. GENITOURINARY: None. MUSCULOSKELETAL: Arthritic pain in joints. DERMATOLOGICAL, HEMATOLOGIC, LYMPHATIC: None. PSYCHIATRY: Forgetful. NEUROLOGICAL does use a walker. PAST MEDICAL HISTORY: Coronary artery disease with stent, lung cancer, COPD, diabetes. PAST SURGICAL HISTORY: Cardiac cath with stent, left lung lobectomy back in 1998. SOCIAL HISTORY: Lives alone. Patient niece helps her out, but patient's son with whom apparently she has been estranged is a durable power of employee benefits attorney. FAMILY HISTORY: Of cancer. HOME MEDICATIONS: 1. Zantac 450 mg p.o. b.i.d. 2. Metamucil 6 grams p.o. daily. 3. Paxil 40 mg p.o. daily. 4. Nitrostat 0.4 sublingual q.5 p.r.n. 5. Nicotine 21 mg patch. 6. DuoNeb t.i.d. 7. Trulicity 1.5 subcu every 7 days. 8. Sinemet 20/100 one tablet p.o. t.i.d. 9. Symbicort 160/4.5 b.i.d. 10.Q-Janay 2 puffs b.i.d. 11.Lipitor 40 mg p.o. q.h.s. 12.Aspirin 81 mg daily. 13.Allopurinol 300 mg p.o. daily. 14.Ventolin HFA 2 puffs q.4 p.r.n. ALLERGIES: TO CARDIZEM, IBUPROFEN, SHELLFISH. PHYSICAL EXAMINATION: VITAL SIGNS: On presentation, temperature 97.6, pulse 81, respiratory 18, blood pressure 107/84, pulse ox 92 percent on room air. GENERAL APPEARANCE: Thin built, tired, lying in bed, short of breath. EYES: Pupils equal. Conjunctivae normal. HEENT: External appearance of nose and ears normal. Oral cavity normal. NECK: JVD not raised. Mass not palpable. RESPIRATORY: Effort increased. Diminished breath sounds. Prolonged expiration and wheezing. CARDIOVASCULAR: First and second sounds normal. No edema. ABDOMEN: Soft, nontender. Liver and spleen not palpable. LYMPHATICS: No lymph nodes palpable in the neck and axilla. PSYCHIATRY: Patient is able to carry on a simple conversation, knows that she is in the hospital, cannot tell really the date or the year. NEUROLOGICAL: Pupils equal. No facial asymmetry. Moving all 4 limbs. MUSCULOSKELETAL: Evidence of osteoarthritis especially in the hands. INVESTIGATIONS: White count 9.5, hemoglobin 14.8, potassium 3.4, BUN 15, creatinine 0.55. Serum glucose was 58. Troponin 0.022. Albumin 3.4. EKG tracing personally reviewed by me shows intraventricular block otherwise sinus rhythm. Chest x-ray film personally reviewed by me shows some cardiomegaly, maybe some chronic changes. ASSESSMENT: 1. Diabetes mellitus type 2, uncontrolled with hypoglycemia. The patient was recently started on Trulicity. 2. Acute chronic obstructive pulmonary disease exacerbation in a current smoker. 3. Chronic nicotine dependence in a cigarette smoker. 4. Coronary artery disease, prior history of stent. 5. Medical debility. 6. Chronic gait dysfunction, uses a walker. PLAN: Patient is put on hypoglycemia protocol. Home medications are resumed. Given a nicotine patch, bronchodilators. We will have the disability case manager and high school social studies teacher looking into the patient's power of employee benefits attorney situation. Lovenox for DVT prophylaxis. Get Physical therapy to evaluate the patient when she is stable by tomorrow. Copy to Dr. Pan. MMANGIE / SAPNAN: [id number] /
[2019-01-29 06:57] LABS: Glucose,Whole Blood 210 mg/dL (75-99)
[2019-01-29] MEDS: INSULIN ASPART (NovoLOG) 100 UNIT/ML VIAL SQ SCH ×4 (07:22→20:11)
[2019-01-29] MEDS: BUDESONIDE 1 MG/2 ML NEBU INHALATION SCH ×2 (07:29→20:30)
[2019-01-29] MEDS: ASPIRIN 81 MG PO SCH (09:23)
[2019-01-29] MEDS: CARBIDOPA-LEVODOPA 25-100 MG 1 EACH TAB PO SCH ×3 (09:23→22:17)
[2019-01-29] MEDS: PARoxetine 20 MG TAB PO SCH (09:23)
[2019-01-29] MEDS: FAMOTIDINE 20 MG TAB PO SCH ×2 (09:23→22:17)
[2019-01-29] MEDS: ENOXAPARIN 40 MG/0.4 ML SYRINGE SQ SCH (09:23)
[2019-01-29] MEDS: PSYLLIUM HUSK 100% 6 GM PACKET PO SCH (09:24)
[2019-01-29 12:19] LABS: Glucose,Whole Blood 213 mg/dL (75-99)
[2019-01-29] MEDS: ALLOPURINOL 300 MG TAB PO SCH (12:43)
[2019-01-29 17:31] LABS: Glucose,Whole Blood 382 mg/dL (75-99)
[2019-01-29 19:49] LABS: Glucose,Whole Blood 386 mg/dL (75-99)
[2019-01-29] MEDS: NICOTINE 21MG/24HR PATCH TRANSDERM SCH (20:11)
[2019-01-29] MEDS: ATORVASTATIN 40 MG TAB PO SCH (22:17)
--- NOTE | 2019-01-29 22:52 | PN ---
PROGRESS NOTE DATE OF SERVICE: 01/29/2019 PRESENTING COMPLAINT: Low sugars. INTERVAL HISTORY: This patient presented with COPD exacerbation and hypoglycemia, having started on Trulicity. Sugars are doing better. Also the fact that the patient has been on steroids. Overall feeling better. Did tolerate some diet. Tired. Was up in a chair. REVIEW OF SYSTEMS: Done for constitutional, cardiovascular, GI, pulmonary; relevant findings as above. CURRENT MEDICATIONS: Reviewed. They include IV Solu-Medrol, DuoNeb. PHYSICAL EXAMINATION: Temperature 98.6, pulse 80, respiration 16, blood pressure 140/67, pulse ox 94% on 2 L. GENERAL APPEARANCE: Lying in bed, more restful. EYES: Pupils equal. Conjunctivae normal. NECK: JVD not raised. Mass not palpable. RESPIRATORY: Effort increased. LUNGS: Decreased breath sounds. Less wheezing. CARDIOVASCULAR: First and second sounds normal. No edema. ABDOMEN: Soft, non-tender. Liver and spleen not palpable. PSYCHIATRY: Awake. Answering simple questions. INVESTIGATIONS: Accu-Cheks 210, 213, 382. ASSESSMENT: 1. Diabetes mellitus, type 2, uncontrolled with hypoglycemia and hyperglycemia since being on steroids. 2. Acute chronic obstructive pulmonary disease exacerbation in a current smoker. 3. Chronic nicotine dependence in a cigarette smoker. 4. Coronary artery disease with prior history of stent. 5. Medical debility. 6. Chronic gait dysfunction. Uses a walker. PLAN: Will switch the patient to oral prednisone. Did tell the patient to take a decision about a durable power of civil rights attorney. She will look into this after. She did not want to reach out to the state for the same. MMODL / IJN: [id number] /
[2019-01-30] MEDS: IPRATROPIUM-ALBUTEROL 3 ML NEB INHALATION SCH ×5 (00:31→16:11)
[2019-01-30 07:08] LABS: Glucose,Whole Blood 382 mg/dL (75-99)
[2019-01-30] MEDS: FAMOTIDINE 20 MG TAB PO SCH (07:56)
[2019-01-30] MEDS: PARoxetine 20 MG TAB PO SCH (07:56)
[2019-01-30] MEDS: INSULIN ASPART (NovoLOG) 100 UNIT/ML VIAL SQ SCH ×2 (07:56→12:41)
[2019-01-30] MEDS: CARBIDOPA-LEVODOPA 25-100 MG 1 EACH TAB PO SCH (07:56)
[2019-01-30] MEDS: ASPIRIN 81 MG PO SCH (07:57)
[2019-01-30] MEDS ORDERED: predniSONE 20 MG TAB PO SCH (09:00)
[2019-01-30] MEDS: BUDESONIDE 1 MG/2 ML NEBU INHALATION SCH (09:10)
[2019-01-30] MEDS: PSYLLIUM HUSK 100% 6 GM PACKET PO SCH (11:40)
[2019-01-30] MEDS: ENOXAPARIN 40 MG/0.4 ML SYRINGE SQ SCH (11:40)
[2019-01-30 11:58] LABS: Glucose,Whole Blood 369 mg/dL (75-99)
[2019-01-30] MEDS ORDERED: glipiZIDE 5 MG TAB PO SCH (13:00)
[2019-01-30] MEDS: ALLOPURINOL 300 MG TAB PO SCH (13:52)
[2019-01-30 15:29] VITALS: BP 152/67; RESP 16; TEMP 98.1
[2019-01-30 16:28] VITALS: PULSE 78
[2019-01-30 17:07] LABS: Glucose,Whole Blood 270 mg/dL (75-99)
--- NOTE | 2019-01-31 01:13 | DS ---
DISCHARGE SUMMARY DATE OF ADMISSION: 01/28/2019 DATE OF DISCHARGE: 01/30/2019 FINAL DIAGNOSES: 1. Diabetes mellitus type 2, uncontrolled with hypoglycemia and hyperglycemia from steroids and initially from Trulicity, POA. 2. Exacerbation in a current smoker, POA. 3. Chronic nicotine dependence in a cigarette smoker. 4. Coronary artery disease with prior history of stent. 5. Medical debility. 6. Chronic gait dysfunction, uses a walker. HOSPITAL COURSE: This is a patient whose son is the DPOA, but patient and son are not on talking terms and patient's niece is the caregiver. The patient presented with hypoglycemia, was recently started on Trulicity. Also, COPD exacerbation, is an active smoker. Responded well to steroids and bronchodilators. Trulicity was discontinued. The patient started on oral hypoglycemic. The patient was discussed. Advised against smoking. Overall doing much better. EXAMINATION: Temperature 98.1, pulse 62, respirations 16, blood pressure 152/67, pulse ox 97% on room air. Lungs decreased breath sounds. Psych: Able to answer simple questions. INVESTIGATIONS: Last Accu-Chek was 270. BUN and creatinine is normal. Hemoglobin 14.8. DISCHARGE MEDICATIONS: 1. Ventolin HFA 2 puffs q.4 p.r.n. 2. Allopurinol 300 mg p.o. daily. 3. Lipitor 40 mg q.h.s. 4. Q-Janay 40 2 puffs b.i.d. 5. Symbicort 160/4.5 one puff b.i.d. 6. Sinemet 20/100 one tablet p.o. t.i.d. 7. Nitrostat 0.4 sublingual q.5 p.r.n. 8. Paxil 40 mg p.o. daily. 9. Zantac 150 mg p.o. b.i.d. 10.Aspirin 81 mg p.o. daily. 11.DuoNeb t.i.d. 12.Nicotine patch. 13.Metamucil 6 grams p.o. daily. 14.Glucotrol 5 mg p.o. with breakfast, Accu-Cheks daily. FOLLOWUP: Follow up with Dr. Pan on February 18, 2019. [facility]. Copy to Dr. Pan. MMCISCOL / IJN: [id number] /
[2019-01-31 02:30] LABS: Hemoglobin A1C 9.9 % (4.0-6.0)
== END 2019-01-30 17:10 | disposition home health service (06) ==
LOC: EC 11:59 → 4SSUR 15:31
PROVIDERS: ADMIT Hospitalist; ATTEND Hospitalist
DX: E11.649 Type 2 diabetes mellitus with hypoglycemia without coma (principal); J44.1 Chronic obstructive pulmonary disease with (acute) exacerbation; E86.0 Dehydration; E11.65 Type 2 diabetes mellitus with hyperglycemia; T38.0X5A Adverse effect of glucocorticoids and synthetic analogues, initial encounter; I25.10 Atherosclerotic heart disease of native coronary artery without angina pectoris; R26.9 Unspecified abnormalities of gait and mobility; R29.6 Repeated falls; M19.042 Primary osteoarthritis, left hand; M19.041 Primary osteoarthritis, right hand; R53.81 Other malaise; I51.7 Cardiomegaly; E46 Unspecified protein-calorie malnutrition; F03.90 Unspecified dementia, unspecified severity, without behavioral disturbance, psychotic disturbance, mood disturbance, and anxiety; Z68.23 Body mass index [BMI] 23.0-23.9, adult; F17.210 Nicotine dependence, cigarettes, uncomplicated; Z79.51 Long term (current) use of inhaled steroids; Z79.82 Long term (current) use of aspirin; Z79.899 Other long term (current) drug therapy; Z88.8 Allergy status to other drugs, medicaments and biological substances; Z88.6 Allergy status to analgesic agent; Z91.013 Allergy to seafood; I25.2 Old myocardial infarction; Z85.118 Personal history of other malignant neoplasm of bronchus and lung; Z95.5 Presence of coronary angioplasty implant and graft; Z90.2 Acquired absence of lung [part of]; Z80.9 Family history of malignant neoplasm, unspecified; Z82.3 Family history of stroke
CPT/HCPCS: 96376; 96375; 96361; 96374; 99285; 36415; 94640 ×6; 94760; 93005; 92610; 80053; 82550; 82553; 83735; 84100; 84484; 85025; 85610; 85730; 81003; 83036; 71101; 72125; 70450; G0378 ×3; S4990 ×2; J2920; J7512

== ENCOUNTER → 2019-02-12 | Outpatient (CLI) | payer MEDICARE, OTHER ==
--- NOTE | 2019-02-13 08:27 | CT ---
"EXAMINATION TYPE: CT chest wo/w con DATE OF EXAM: 02/12/2019 COMPARISON: 08/12/2017 HISTORY: SOB, hx of lung CA CT DLP: 677 mGycm Automated exposure control for dose reduction was used. CONTRAST: CT scan of the chest is performed without and with IV Contrast, patient injected with 100 mL of Isovu e 300. FINDINGS: LUNGS: Right lower lobe pulmonary nodule medially measures 2.5 x 2.4 cm and has increased in size wit h prior measurement of 1.4 x 1.4 cm. No additional nodules or masses are seen at this time. There is interval development of a small to moderate bilateral pleural effusions measuring 5.4 cm on the left and approximately 3.6 cm on the right. Suspect underlying atelectasis. Nonspecific lingular density n oted. MEDIASTINUM: There is a descending thoracic aortic aneurysm at the level of the left mainstem bronchu s measuring 6.9 x 6.0 cm versus 5.0 x 4.7 cm previously. No evidence for hilar or mediastinal adenopa thy. UPPER ABDOMEN: Splenic granulomas identified. OTHER: No additional significant abnormality is seen. IMPRESSION: 1. Increase in size in right lower lobe pulmonary nodule. Malignancy is not excluded. 2. Interval development of [id number] bilateral pleural effusions. 3. Progression of descending thoracic aortic aneurysm. A [place] level critical message alert has been initiated for Gus Pan MD via the [employer] [facility] 0 | Critical Results System on 02/13/2019 8:25 AM. This message alert has been sent to Gus Pan MD via the preferences provided by the clinician for the receipt of Radiology Critical Findings. [employer] age ID [id number]."
== END ==
LOC: RADCTMAIN 16:50
PROVIDERS: ATTEND Family Medicine
DX: Z85.118 Personal history of other malignant neoplasm of bronchus and lung (principal)
CPT/HCPCS: 82565; 84520; 71270; 36415; Q9967